=== PATIENT | male | born 1940 | race Caucasian/White ===

== ENCOUNTER 2025-01-02 09:30 | Inpatient (IN) | payer OTHER, SELFPAY ==
[2025-01-02] VITALS (34 sets, daily range): BP systolic 84–147; BP diastolic 45–111; BMI 29.2
--- NOTE | 2025-01-02 10:43 | CON.CAR ---
Addendum entered and electronically signed by Carmelo Pfeiffer MD 01/02/25 13:02:
I saw and examined the patient.
The FUR VAULT ATTENDANT's note was reviewed and I agree with the note.
Comment:
Mr. Shepherd is an 84 yo male with [place] [place] 23mm bio AVR in 02/2013, HFrEF 40%, HTN, CKD, and DM, who was admitted to [facility] 12/26/24 for syncope at home, cardiogenic shock and acute HFrEF (EF dropped from 40% to 25%), initially on dobutamine and levo,
then weaned to dobutamine 2.5. He was transferred to for cardiac cath and TAVR evaluation secondary to worsened aortic valve gradient with mean gradient 34mmHg. On exam he is comfortable appearing, irregularly irregular rhythm, systolic murmur,
no LE edema. Labs pending. Plan for LHC today. TAVR possible next week. Lasix depending on labs.
Original Note:
Consultation
Consultation Request
Date/Time Consultation Requested: 01/02/25 10:30a
Date/Time Consultation Performed: 01/02/25 10:30a
Requesting Provider: Dr. Salas
Performing Provider: ZAIRA Ge for Dr. Pfeiffer
Reason for Consultation: cardiogenic shock/aortic valve disease
Medical History
-
Chief Complaint: syncope/HFrEF
History of Present Illness:
Mr. Shepherd is an 84 yo male with [employer] [place] 23mm bio AVR in 02/2013, HFrEF 40%, HTN, CKD, and DM, who was admitted to [facility] 12/26/24 for syncope at home, cardiogenic shock and acute HFrEF. He was then transferred to for cardiac cath and TAVR
evaluation secondary to worsened aortic valve gradient mean gradient 34mmHg. There were insufficient records sent with him at the time of transfer and therefore additional records have been requested. Per physician/nurse report received, his EF is
now 20-25% with mean aortic valve gradient 34mmHg. He was in the ICU at [facility] on a Dobutamine drip, which is currently off. Currently he denies any cardiac complaints.
He states feeling lightheaded at home and had syncope and was taken to [facility]. He has diffuse ecchymosis to b/l arms/legs and left eye area. He states falling at home recently, uses a rolling walker at home. Denies any other cardiac symptoms at home.
He states imaging studies done at [facility] were negative.
Past Medical History
Past Medical History: Other (as above)
Past Surgical History: Cardiac (bio AVR 02/2013)
Social History
Tobacco: Non-Smoker
Alcohol: None
Personal:
Living: With Family
Employment: Retired
Family History
Family History: Reviewed & Not Pertinent
Allergies / Home Medications
Allergy/AdvReac Type Severity Reaction Status Date / Time
penicillin V [Penicillin V] Allergy Anaphylaxis Verified 02/12/13 18:16
�Medication �Instructions �Recorded �Confirmed �Type
aspirin 81 mg chewable tablet 81 mg PO DAILY 12/26/12 12/26/12 History
carvedilol 6.25 mg tablet 6.25 mg PO BID 12/26/12 12/26/12 History
furosemide 20 mg tablet 20 mg PO DAILY 12/26/12 12/26/12 History
losartan 50 mg tablet 50 mg PO DAILY 12/26/12 12/26/12 History
potassium chloride 10 mEq 10 meq PO DAILY 12/26/12 12/26/12 History
tablet,extended release (Klor-Con)
pravastatin 20 mg tablet 20 mg PO DAILY 12/26/12 12/26/12 History
(Pravachol)
silodosin 8 mg capsule (Rapaflo) 8 mg PO DAILY 12/26/12 12/26/12 History
Review of Systems
-
History Source: Patient
All other systems: Negative unless noted
Physical Exam
Vital Signs
Resp Pulse Ox
18 97
01/02/25 09:39 01/02/25 10:10
Lab Results
awaiting labs from his transfer records.
Physical Exam
General: Well Developed and Well Nourished
HEENT: Normocephalic and Moist Mucous Membranes
Respiratory: Clear and Non Labored Respirations
Cardiac: S1/S2, Regular Rhythm, Murmur and Peripheral Edema (trace b/l LE edema)
Breast: Deferred by me
GI: Soft, Non Tender and Normal Bowel Sounds
Rectal: Deferred by Provider
Genito-urinary: No Costovertebral Tender
Musculoskeletal: No Clubbing and No Cyanosis
Skin: Warm and Dry
Neuro: AO x 3
Psych: Calm
Impression / Plan
-
AVR - bio 02/[address] Solorzano at .
- now with mean gradient of aortic valve 34mmHg, awaiting records from [facility].
- plan for cath today and TAVR evaluation.
HFrEF - 20-25%, awaiting records from [facility].
- was diuresed at [facility] and on Dobutamine drip in the ICU.
- plan for LHC today and TAVR evaluation.
- monitor daily weights, I&Os, fluid/sodium restrictions.
- Lasix, Coreg and losartan held at [facility] due to hypotension requiring Dobutamine drip.
HTN - low BP with diuresis and cardiogenic shock while in ICU at [facility].
- was on Dobutamine, now off.
- monitor.
CKD - per transfer record notes, awaiting records.
- monitor.
Data Reviewed
-
Labs: Labs Reviewed by me
Old Records: Requested
--- NOTE | 2025-01-02 11:31 | PTCARENOTE ---
Pt received from [facility] via ambulance at 0940. Pt alert and oriented. Denies any pain or discomfort. Room air sat 97%. SR with first degree AV block, rate in the 70's to 90's.
--- NOTE | 2025-01-02 11:52 | HPS.HSE ---
Family Physician
-
Family Physician: Taj Singh
Chief Complaint
-
Cardiogenic shock
History of Present Illness
84 y/o M hx of DM, CKD, Hx of GI bleeding, valvular HD (hx of BioAVR), HTN, CAD presents as transfer from [facility]. Presented there 1 week ago with fall and hip pain (trauma workup negative). Also noted to be in acute CHF and CAN (on CKD) and Echo
revealed WMA, EF 20-25%, global hypokinesis. Concern was for cardiogenic shock - placed on Lasix and Dobutamine drips. Patient was transferred to for cath and TAVR eval. At present feels comfortable, no complaints. Per verbal report, admitting Cr
was 2.7 and most recently 2.1 (baseline 1.4) and Trop was 211 on their assay on admission.
Medical History
Past Medical History
Past Medical History: Reports Other (DM, CKD, Hx of GI bleeding, valvular HD (hx of BioAVR), HTN, CAD)
Past Surgical History: Reports Cardiac (hx of bioAVR)
Social History
Unable to obtain full social history at this time due to: Dementia
Tobacco: Non-smoker
Alcohol: None
Drug: None
Family History
Family History: Not pertinent
Allergies / Home Medications
Allergies reflects when Allergies were last updated in [employer].
Home Medications with original date entered in [employer]
Allergy/Medication List:
Allergies
Allergy/AdvReac Type Severity Reaction Status Date / Time
penicillin V [Penicillin V] Allergy Anaphylaxis Verified 02/12/13 18:16
Home Medications
aspirin 81 mg chewable tablet 81 mg PO DAILY 12/26/12
carvedilol 6.25 mg tablet 6.25 mg PO BID 12/26/12
furosemide 20 mg tablet 20 mg PO DAILY 12/26/12
losartan 50 mg tablet 50 mg PO DAILY 12/26/12
potassium chloride 10 mEq tablet,extended release (Klor-Con) 10 meq PO DAILY 12/26/12
pravastatin 20 mg tablet (Pravachol) 20 mg PO DAILY 12/26/12
silodosin 8 mg capsule (Rapaflo) 8 mg PO DAILY 12/26/12
Review of Systems
-
A 12 point ROS was completed and negative except as noted: Yes
Physical Exam
Vital Signs
Vital Signs
Temp Pulse Resp BP Pulse Ox
97.8 F 78 18 89/65 97
01/02/25 11:34 01/02/25 10:45 01/02/25 09:39 01/02/25 10:30 01/02/25 10:10
Physical Exam
General: Well Developed, Well Nourished and No Apparent Distress
HEENT: NormoCephalic and Anicteric
Respiratory: No Wheezes or Rales
Cardiac: S1/S2 and Regular Rhythm
GI: Soft and Non Tender
Neuro: AO x 3
Hematologic/Lymphatic: No Lymphadenopathy
Psych: Calm
Data Reviewed
-
Lab Data: Labs Reviewed by me
Impression/Plan
-
Assessment:
Cardiogenic shock
Hx of BioAVR
- IVU admission with stat labs, EKG
- Echo per verbal report with EF 20-25%, WMA, global hypokinesis, G3 Diastolic dysfunction
- transferred to on Dobutamine drip; currently on hold
- Lasix drip on hold
- for R and LHC today with Cardiology
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
Acute Cardiorenal syndrome
- obtain records formally but per verbal report admitting Cr was 2.7, 2.1 at time of transfer (baseline 1.4 from 07/2024)
- admission labs
- Nephrology consult
Hx of DM per record
- not on home meds
- check A1c
- SSI low scale
Hx of GI bleeding
- details unknown
Essential HTN
- Coreg/Lasix/ARB on hold
Hx of CAD
Urinary wall thickening on CT @ [facility]
- UA pending
DVT ppx: SCDs for now with cath pending
Code: Full
[2025-01-02 12:31] LABS: % Basophils 0.3 % (0-2); % Immature Granulocytes 0.3 % (0-0.5); % Lymphocytes 7.9 % (20.5-51.1); % Monocytes 10.4 % (1.7-9.3); % Neutrophils 80.1 % (42.2-75.2); Absolute Eosinophils 0.1 10^3/uL (0-0.7); Absolute Lymphocytes 0.5 10^3/uL (1.2-3.4); Absolute Monocytes 0.6 10^3/uL (0.1-0.6); Absolute Neutrophils 4.8 10^3/uL (1.4-6.5); Hematocrit 29.6 % (39.0-52.0); Hemoglobin 9.3 g/dL (13.0-18.0); Mean Corp Hgb Conc. 31.4 g/dL (33.0-37.0); Nucleated Red Blood Cells % 0 % (-); Red Blood Cell Count 3.44 10^6/uL (4.70-6.10); Red Cell Dist. Width 19.9 % (11.5-14.5); White Blood Cell Count 5.9 10^3/uL (4.8-10.8)
[2025-01-02 12:49] LABS: ALT (SGPT) 45 U/L (0-50); AST (SGOT) 84 U/L (17-59); Albumin 3.7 g/dl (3.5-5.0); Alkaline Phosphatase 75 U/L (38-126); Blood Urea Nitrogen 59 mg/dl (9-20); Calcium 8.9 mg/dl (8.4-10.2); Carbon Dioxide 28 mmol/L (22-30); Chloride 102 mmol/L (98-107); Glucose 122 mg/dl (70-99); Magnesium 2.8 mg/dl (1.6-2.3); Potassium 4.4 mmol/L (3.5-5.1); Sodium 140 mmol/L (135-145); Total Bilirubin 3.7 mg/dl (0.2-1.3); Total Protein 6.2 g/dl (6.3-8.2); eGFR 30.28
--- NOTE | 2025-01-02 13:08 | W.CON.NEPH ---
Consultation
-
Date/Time Consultation Requested: 01/02/2025 11:30 AM
Date/Time Consultation Performed: 01/02/2025 1:00
Requesting Provider: Dr. Harrison
Performing Provider: Dr. Koehler
Reason for Consultation: Acute kidney injury
Medical History
-
Chief Complaint: Acute kidney injury
History of Present Illness:
84 y/o M hx of DM, CKD, Hx of GI bleeding, valvular HD (hx of BioAVR), HTN, CAD presents as transfer from [facility]. He is a DM on metformin Presented there 1 week ago with fall and hip pain (trauma workup negative). Also noted to be in acute CHF and CAN
(on CKD) and Echo revealed WMA, EF 20-25%, global hypokinesis. Concern was for cardiogenic shock - placed on Lasix and Dobutamine drips. Patient was transferred to for cath and TAVR eval. At present feels comfortable, no complaints. Per verbal
report, admitting Cr was 2.7 and most recently 2.1 (baseline 1.4) and Trop was 211 on their assay on admission.
Past Medical History
DM, CKD (1.4), Hx of GI bleeding, valvular HD (hx of BioAVR), HTN, CAD,
Social History
Tobacco: Non-Smoker
Alcohol: None
Drug: None
Family History
No CKD
Allergies / Home Medications
Allergy/AdvReac Type Severity Reaction Status Date / Time
penicillin V [Penicillin V] Allergy Anaphylaxis Verified 02/12/13 18:16
�Medication �Instructions �Recorded �Confirmed �Type
aspirin 81 mg chewable tablet 81 mg PO DAILY 12/26/12 12/26/12 History
carvedilol 6.25 mg tablet 6.25 mg PO BID 12/26/12 12/26/12 History
furosemide 20 mg tablet 20 mg PO DAILY 12/26/12 12/26/12 History
losartan 50 mg tablet 50 mg PO DAILY 12/26/12 12/26/12 History
potassium chloride 10 mEq 10 meq PO DAILY 12/26/12 12/26/12 History
tablet,extended release (Klor-Con)
pravastatin 20 mg tablet 20 mg PO DAILY 12/26/12 12/26/12 History
(Pravachol)
silodosin 8 mg capsule (Rapaflo) 8 mg PO DAILY 12/26/12 12/26/12 History
Review of Systems
-
History Source: Patient
All other systems: Negative unless noted
Constitutional: Weight Gain, Fatigue and Other (weakness)
EENT: No Symptoms
Respiratory: Trouble Breathing
Cardiac: No Symptoms
Abdomen/GI: No Symptoms
: No Symptoms
Musculoskeletal: No Symptoms
Skin: No Symptoms
Neurological: Other (Dementia)
Endocrine: No Symptoms
Hematologic/Lymphatic: No Symptoms
Physical Exam
Vital Signs
Vital Signs
Temp Pulse Resp BP Pulse Ox
97.8 F 78 18 89/65 97
01/02/25 11:34 01/02/25 10:45 01/02/25 09:39 01/02/25 10:30 01/02/25 10:10
Lab Results
01/02/25 12:11
01/02/25 12:11
WBC 5.9 10^3/uL (4.8-10.8) 01/02/25 12:11
RBC 3.44 10^6/uL (4.70-6.10) L 01/02/25 12:11
Hgb 9.3 g/dL (13.0-18.0) L 01/02/25 12:11
Hct 29.6 % (39.0-52.0) L 01/02/25 12:11
Sodium 140 mmol/L (135-145) 01/02/25 12:11
Potassium 4.4 mmol/L (3.5-5.1) 01/02/25 12:11
Chloride 102 mmol/L (98-107) 01/02/25 12:11
Carbon Dioxide 28 mmol/L (22-30) 01/02/25 12:11
BUN 59 mg/dl (9-20) H 01/02/25 12:11
Creatinine 2.1 mg/dL (0.7-1.3) H 01/02/25 12:11
eGFR 30.28 01/02/25 12:11
Glucose 122 mg/dl (70-99) H 01/02/25 12:11
Calcium 8.9 mg/dl (8.4-10.2) 01/02/25 12:11
Albumin 3.7 g/dl (3.5-5.0) 01/02/25 12:11
Physical Exam
General: AOx3
HEENT: PERRL, EOMI, Conjunctivae Clear and Ear/Nose Intact
Respiratory: Wheezes and Other (decreased breath sounds at bases)
Cardiac: Regular Rate/Rhythm
Breast: Deferred by me
Abdomen: Soft, Nontender, Nondistended, Normal Bowel Sounds and No Hepatosplenomegaly
Rectal: Deferred by Provider
Genito-urinary: No Costovertebral Tender
Musculoskeletal: No Clubbing, No Cyanosis and No Edema
Skin: No Rash
Neuro: Nonfocal/Grossly Intact
Hematologic/Lymphatic: No Cervical Lymphadenopathy
Psych: Mood/afflect pleasant and Insight/judgement good
Data Reviewed
-
Medical Tests (Nuc Med, Echo etc): Other (EKG LAD 86bpm RBBB wide QRS)
Labs: Labs Reviewed by me (BMP CBC)
Old Records: Reviewed (Creatinine 1.09 July 2024)
Assessment/Plan
-
Impression:
CAN likely due to decompensated cardiorenal syndrome
Cardiomyopathy with EF of 20 to 25% with cardiogenic shock
CKD 3 (1.4)
Anemia
History of CAD
History of diabetes
Hypertension now hypotensive
Plan:
CAN:
-Likely due to cardiorenal syndrome in setting of decompensated cardiogenic shock
-For left and right heart cath today (will be at high risk for contrast nephropathy given acute kidney injury in setting of congestive heart failure)
-check PVR bladder scan
-Need to increase MAP to 65 or greater
-Holding antihypertensives
-Maintaining dobutamine inotropic support
-Check urinalysis urine sodium urine creatinine and kidney and bladder ultrasound
[2025-01-02 13:16] LABS: Platelet Count 78 10^3/uL (130-400)
--- NOTE | 2025-01-02 13:45 | CM ---
Addendum entered by MIGUELANGEL Nagel 01/02/25 14:33:
Met w/ patient again, spouse Miguelina (Ava) and 2 sons: Santiago and Dagoberto.
Family shared that patient has had numerous falls prior to his admission to [facility]. He has not done much therapy since being in [facility] (he was admitted x1 wk prior).
We discussed possibility of inpatient SNF upon DC from . Family open to this idea and feels that it would be helpful for patient.
They mentioned a SNF facility located on [facility] (?[facility]). Did not yet initiate a referral as there is not much to send at this time. Pt. would benefit from PT-OT evaluation once medically able to ascertain
needs.
We agreed to follow up early next week.
Antic. need for rehabilitation @ DC prior to returning home.
Original Note:
CM following for DC planning needs.
Met w/ patient at bedside to complete initial assessment.
Pt. with some confusion; will collaborate w/ family once they arrive.
Pt. resides w/ spouse in a private, split level home. He reports that his son, Dagoberto resides there as well. Pt. reports that he is indep. w/ use of a RW.
DC plan anticipates for return to home but will depend on medical/ functional progress.
CM will cont. to follow closely for DC planning needs.
[2025-01-02] MEDS: LOW STRENGTH ASPIRIN 81 MG PO (13:59)
[2025-01-02 14:09] LABS: Urine Albumin 1+ (Neg - Trace); Urine Bilirubin Negative (Negative); Urine Character Clear (Clear); Urine Color Yellow; Urine Glucose Negative (Negative); Urine Ketone Negative (Negative); Urine Leukocyte 1+ (Negative); Urine Nitrite Negative (Negative); Urine Occult Blood Negative (Negative); Urine Specific Gravity 1.015 (<1.030); Urine Urobilinogen Negative (Neg - 1+)
[2025-01-02 14:41] LABS: Urine Red Blood Cell 0-2 /HPF (0-2); Urine Squamous Cell 0-2 /LPF (Few)
[2025-01-02 14:42] LABS: Urine Bacteria Moderate (Negative); Urine Hyaline Cast >15 /LPF (0-2)
--- NOTE | 2025-01-02 17:30 | ITS.CL.PN ---
Bi Tester - Procedure Note
Procedure
Procedure Note:
CARDIAC CATHETERIZATION REPORT
Date of Procedure: 01/02/2025
Referring: Dr. Cherry Hernandez MD
Indication: Cardiogenic shock
PROCEDURE: right heart catheterization
ACCESS: 7F right internal jugular vein (sewn in place at 58 cm)
CATHETERS: 7F [place]Prashant
ULTRASOUND GUIDED VASCULAR ACCESS (right internal jugular vein): Ultrasound was utilized for vascular access. The vessel was visualized under ultrasound and noted to be patent. An image of the vessel was stored permanently in the patient's medical
record. Under direct ultrasound guidance, vascular access was obtained using a modified Seldinger technique and a 7 [place] sheath was placed.
HEMODYNAMIC DATA
AO 92/50 (mean 68) mmHg
RA 25 mmHg
RV 65/19 (EDP 24) mmHg
PA 66/33 (mean 49) mmHg
PCWP 32 mmHg
SaO2 96%
SvO2 31%
Hb 9.1 g/dL
CO/CI 3.28/1.56 L/min/m2
SVR 1048 dsc*-5
PVR 4.6 Wood units
RADIATION: dose 36 mGy; DAP 5.3 Gy*cm2; fluoroscopy time 2.6 min
CONCLUSIONS: severely elevated biventricular filling pressures, severe pre and postcapillary pulmonary hypertension, and severely reduced cardiac output and index with normal SVR
RECOMMENDATIONS
1. expectant management after cardiac catheterization via right internal jugular vein approach
2. swan guided management of cardiogenic shock. Initial plan to diurese aggressively with inotropic support.
3. once hemodynamics improve, consider left heart cath and coronary angiography to workup for possible valve in valve TAVR
Signed: Norm Ross MD, PhD
[2025-01-02 18:22] LABS: Glucose - Point of Care 123 mg/dl (70-99)
--- NOTE | 2025-01-02 18:29 | PTCARENOTE ---
Pt rec'd from garage laborer to room 15 in recovery. Pt dyspneic at rest with audible wheezing throughout. Pt with coarse breathsound and crackles b/l throughout. R IJ swan in place, transduced and Cortis with IV fluids infusing at KVO via pump. Pt's
pox 94% on RA. Pt due for IV lasix, however, pt's SBP 80's-90's at this time. Will hold. Accu ck completed. Pt with condom cath in place, draining charleen colored, clear urine. Report given to CVICU and pt transported.
[2025-01-02] MEDS: DOBUTREX 500 MG 250 IV (18:43)
[2025-01-02] MEDS: LASIX 80 MG IV (19:17)
--- NOTE | 2025-01-02 19:41 | PTCARENOTE ---
Received pt from phlebotomist medical lab assistant at 1820; pt AAOx2 and mildly agitated, bed alarm on; RIJ Cordis, Foreman and PIV x2; all lines leveled and zeroed; PAs 70s/30 and CVP 20s; Dobutamine started per MD order; updated Ying Pfeiffer BP 100s/60s, pt due for Lasix 80 IV
push and Lasix drip; confirmed with MD to give Lasix 80 IV push and watch BP if BP stable then ok to start drip; Santos catheter ordered by CVNP and placed; updated CVPA for possible A-line placement; report given to shift coordinator RN.
[2025-01-02 20:13] LABS: Glucose - Point of Care 124 mg/dl (70-99)
--- NOTE | 2025-01-02 21:10 | PTCARENOTE ---
Report received at bedside from ALVARO Kendall. Pt oriented to person, year. Intermittently to purpose and place. Able to recall birthday, president, family. Speech clear, moves all extremities equally x 4. Forgetful at times of parra catheter, nasal
cannula. Restless in bed at times. 2L/NC O2 placed. Sats 98-99%. BBS present. Some expiratory wheezing present to B anterior lobes. Decreased breath sounds at bases. Pt in SR with 1st degree AVB, c BBB. Frequent PVCs, occasional ventricular
bigeminy. One 18-beat run of tachycardia-AF vs wide complex tachycardia. Dobutamine gtt at 2.5 mcg/kg/min. CI done and is 1.98, SVR 1200's. Lasix 80 mg IV given slowly. BP maintained 84-108/60-70's. Discussed cardiac information via TT with
Kentrell. Plan is to start Lasix gtt as ordered after Arterial line placed by PA. To draw labs at 2200 (BMP and Mg). Belly soft, nontender. Passing flatus. Hypoactive bowel sounds x 4. Attempted BM x 1 on bedpan without success. Parra to drain,
clear, yellow urine. Hourly outputs monitored. Pt given CHG bath, linens changed. Ongoing plan of care.
[2025-01-02 22:29] LABS: Glucose - Point of Care 130 mg/dl (70-99)
[2025-01-02 23:17] LABS: Blood Urea Nitrogen 63 mg/dl (9-20); Calcium 8.7 mg/dl (8.4-10.2); Carbon Dioxide 27 mmol/L (22-30); Chloride 103 mmol/L (98-107); Estimated Creatinine Clearance 25 ml/min; Glucose 127 mg/dl (70-99); Magnesium 2.7 mg/dl (1.6-2.3); Potassium 4.5 mmol/L (3.5-5.1); Sodium 140 mmol/L (135-145); eGFR 28.63
--- NOTE | 2025-01-02 23:42 | W.PN.UPDATE ---
Update Note
Progress Note Update
Procedure Note:
Procedure: Left Radial Arterial Line Placement
Consent: Obtained and can be found in chart
Indication: Pt in cardiogenic shock, on Dobutamine in need of continuous BP monitoring and frequent phlebotomy
Method: After Dominick's test confirmed patency of left ulnar arty and kirk arches, area was sterilely prepped and draped. Lidocaine 1% was used to anesthetized area, left radial artery was identified and punctured
with an 18G radial arterial line needle, catheter was inserted using Seldinger's technique without resistance. Good flashback of blood was noted and catheter was connected to monitor with good waveform noted.
Catheter was sterilely adhered to wrist with tegaderm after applying biopatch. There were no significant blood loss, and pt tolerated procedure well.
[2025-01-03] VITALS (29 sets, daily range): BP systolic 77–141; BP diastolic 54–113; BMI 28.7
[2025-01-03] MEDS: LASIX 50 IV ×2 (00:07→21:15)
--- NOTE | 2025-01-03 00:15 | PTCARENOTE ---
Arterial line placed by Ed, PA. Pulsatile waveform to monitor. Line levelled and zeroed. Labs were drawn and sent at ~ 2200. PA with lab results. Lasix gtt started at ~ MN as ordered. Pt remains oriented to person, year, and intermittently to place
and purpose. Pt restless at times. Pulls at Santos, O2 cannula. Reoriented to purpose of medical devices/equipment in room.
[2025-01-03] MEDS: MELATONIN 5 MG PO (01:57)
--- NOTE | 2025-01-03 02:15 | PTCARENOTE ---
Melatonin 5 mg po given for insomnia. Pt restless at times. Pulling at A line, Santos at times. Sats on room air 93-95%. Most recent CI 2.02.
--- NOTE | 2025-01-03 06:15 | PTCARENOTE ---
Labs and urine drawn and sent. CXR done. LAC IV infiltrated. D/C'ed. New IV started in RAC #22. Lasix and NS carrier fluid infusing through new IV. Renal US to be done at bedside today. No change to neuro assessment. Remains restless at times. Picks
at Santos, arterial line, nasal cannula. To give report to ALVARO Campbell this am.
[2025-01-03 06:17] LABS: ALT (SGPT) 42 U/L (0-50); AST (SGOT) 68 U/L (17-59); Albumin 3.3 g/dl (3.5-5.0); Alkaline Phosphatase 76 U/L (38-126); Blood Urea Nitrogen 64 mg/dl (9-20); Calcium 8.5 mg/dl (8.4-10.2); Carbon Dioxide 24 mmol/L (22-30); Chloride 105 mmol/L (98-107); Direct Bilirubin 2.3 mg/dl (0.0-0.4); Estimated Creatinine Clearance 24 ml/min; GGTP 23 U/L (15-73); Glucose 121 mg/dl (70-99); Hematocrit 27.2 % (39.0-52.0); Hemoglobin 8.8 g/dL (13.0-18.0); Magnesium 2.5 mg/dl (1.6-2.3); Mean Corp Hgb Conc. 32.4 g/dL (33.0-37.0); Mean Corpuscular Hgb 27.1 pg (27.0-31.0); Mean Corpuscular Volume 83.7 fL (80.0-94.0); Platelet Count 65 10^3/uL (130-400); Potassium 4.4 mmol/L (3.5-5.1); Red Blood Cell Count 3.25 10^6/uL (4.70-6.10); Red Cell Dist. Width 19.9 % (11.5-14.5); Sodium 139 mmol/L (135-145); Total Bilirubin 4.1 mg/dl (0.2-1.3); Total Protein 5.8 g/dl (6.3-8.2); eGFR 27.15
[2025-01-03 06:30] LABS: Protein/creatinine Ratio 0.3; Urine Protein 15 mg/dl; Urine Sodium 73 mmol/L (30-90)
[2025-01-03 07:53] LABS: Glucose - Point of Care 127 mg/dl (70-99)
--- NOTE | 2025-01-03 08:05 | PTCARENOTE ---
Pt received from outgoing RN, pt on bedrest with Dung /america/sofya, on multiple gtts, dobutamine, lasix, vss, RA, bl SCD, parra, multiple bruising through the body d/t fall prior to admission. Pt disoriented to time and place, restless, constant
picking, require constant reorientation.
--- NOTE | 2025-01-03 08:38 | W.PN.NEPH.PH ---
Today's Communication / Plan
-
Maintain dobutamine and Lasix infusion
Follow BMP
Maintain Santos cath
Assessment/Plan
-
Impression:
CAN likely due to decompensated cardiorenal syndrome
Cardiomyopathy with EF of 20 to 25% with cardiogenic shock
CKD 3 (1.4)
Anemia
History of CAD
History of diabetes
Hypertension now hypotensive
Plan:
CAN:
-Creatinine at 2.3, nonoliguric with urine output of 1300 cc
-Chest x-ray personally reviewed from this morning notable for bilateral interstitial edema
-Likely due to cardiorenal syndrome in setting of decompensated cardiogenic shock
-check PVR bladder scan
-Need to increase MAP to 65 or greater
-Holding antihypertensives
-on dobutamine dobutamine and Lasix infusion as patient is volume overloaded in setting of cardiogenic shock
-Reviewed right cardiac catheterization report from yesterday 01/02/25: Pulmonary capillary wedge pressure 32 cardiac output 3.28 cardiac index 1.56 SVR 1048
-Check urinalysis urine sodium urine creatinine and kidney and bladder ultrasound: 300mg of proteinuria
-Patient at high clinical risk with persistent renal failure in setting of cardiogenic shock and decompensated congestive heart
-
-
Date of Service: January 03, 2025
CC / HPI / ROS
-
Chief Complaint:
Acute kidney injury
History of Present Illness:
Creatinine at 2.3
Hemodynamically labile
Remains on dobutamine infusion in setting of cardiogenic shock
Lasix infusion at 10 mg/h
Review of Systems:
Confused
Denies chest pain or shortness of
Santos catheter
Labs
-
Labs:
WBC 7.0 10^3/uL (4.8-10.8) 01/03/25 05:03
RBC 3.25 10^6/uL (4.70-6.10) L 01/03/25 05:03
Hgb 8.8 g/dL (13.0-18.0) L 01/03/25 05:03
Hct 27.2 % (39.0-52.0) L 01/03/25 05:03
Plt Count 65 10^3/uL (130-400) L 01/03/25 05:03
Sodium 139 mmol/L (135-145) 01/03/25 05:03
Potassium 4.4 mmol/L (3.5-5.1) 01/03/25 05:03
Chloride 105 mmol/L (98-107) 01/03/25 05:03
Carbon Dioxide 24 mmol/L (22-30) 01/03/25 05:03
BUN 64 mg/dl (9-20) H 01/03/25 05:03
Creatinine 2.3 mg/dL (0.7-1.3) H 01/03/25 05:03
eGFR 27.15 01/03/25 05:03
Glucose 121 mg/dl (70-99) H 01/03/25 05:03
Calcium 8.5 mg/dl (8.4-10.2) 01/03/25 05:03
Albumin 3.3 g/dl (3.5-5.0) L 01/03/25 05:03
Physical Exam
-
Vital Signs:
Vital Signs
Temp Pulse Resp BP Pulse Ox
99.1 F 88 24 93/64 96
01/03/25 07:58 01/03/25 07:45 01/03/25 07:45 01/03/25 00:00 01/03/25 08:03
Cardiovascular:: Regular rate and rhythm
Respiratory:: Bilateral: Coarse and Bilateral: Wheeze
Lung Excursion:: Normal
Abdomen:: Nontender and Soft
Bowel Sounds:: Normal
Extremity Edema:: None: Bilateral:
Santos Catheter: Yes
--- NOTE | 2025-01-03 09:25 | W.PN.CD ---
Today's Communication / Plan
-
Increase dobutamine to 5. Goal CI >2
Bolus with Lasix 80 mg and continue drip at 10. Goal CVP 10-12
Check 2 PM BMP/Mg for lytes
Echo on Sunday
Impression / Plan
-
84 yo male with [facility] [place] 23mm bio AVR in 02/2013, HFrEF 40%, HTN, CKD, and DM, who was admitted to [facility] 12/26/24 for syncope at home, cardiogenic shock and acute HFrEF (EF dropped from 40% to 25%) now transferred to for potential TAVR. RHC on
01/02/25 was cold and wet, started on dobutamine and lasix drip.
Cardiogenic shock
-Diagnosis is a threat to life and requires telemetry monitoring, frequent labs, and frequent nursing.
-RHC 01/02/2025: RA 25, PA 66/33 (48), PCWP 32, CO/CI 3.3/1.5, SVR 1048 at 92.3 kg
-Increase dobutamine to 5 mcg. Goal CI >2
-Continue Lasix drip at 10 mg. Bolus with 80 mg now and reassess CVP/PAd in 6 hours.
-Strict I's/O's, daily weights
-Check 2 PM BMP/Mg for lytes
CAN on CKD
-Likely cardiorenal
-Trend with inotrope assisted diuresis
-Renal following. Appreciate recs.
AVR - bio 02/[address] Solorzano at .
- now with mean gradient of aortic valve 34mmHg per report from [facility].
- repeat echo here on Sunday
- possible TAVR at some point this admission pending treatment of cardiogenic shock as above
HTN -currently on inotropes as above, hold home meds
CCT: 36 minutes, cardiogenic shock requiring inotropes.
Subjective: Patient has no complaints this AM. Underwent RHC yesterday (see results above). Most recent chemo was with CO/CI 3.9/1.85, SVR 1005, CVP 19, PAd 29. Telemetry with frequent PVCs but no ventricular runs.
Physical Exam
Vital Signs/Labs
Vital Signs
Temp Pulse Resp BP Pulse Ox
99.1 F 88 24 93/64 96
01/03/25 07:58 01/03/25 07:45 01/03/25 07:45 01/03/25 00:00 01/03/25 08:03
01/02/25 01/03/25 01/04/25
06:59 06:59 06:59
Actual Weight 90.6 kg
01/03/25 05:03
01/03/25 05:03
Magnesium 2.5 mg/dl (1.6-2.3) H 01/03/25 05:03
Physical Exam
Constitutional: No acute distress and Comfortable
Cardiovascular: Pedal edema is absent, Rhythm/rate is irregular, Systolic murmur present and S1S2 is normal
Respiratory: Respiratory effort normal and Crackles Present
Neuro/Psych: AO x 3
Other: Cath Site (looks OK, SGC clean and dry)
Data Reviewed
-
Date of Service: January 03, 2025
Medical Decision Making: Reviewed Test Results, Independent Historian Assessment, Test Interpretation and Review of Case with other Provider
EKG: Tracing Personally Visualized and interpreted
Echo: Report Reviewed by me
X-Ray/CT/US/MRI/NUC/PET: Image Personally Visualized and interpreted, Discussed with Physician and Discussed with Nurse
Labs: Labs Reviewed by me and Labs Ordered by me
Old Records: Reviewed
Critical Care Time (in minutes): 36
--- NOTE | 2025-01-03 09:28 | PTCARENOTE ---
INCREASED DOBUTAMINE 2.5MCG--> 5MCG PER , WILL GIVE AN ADDITIONAL DOSE OF 80MG OF LASIX
[2025-01-03] MEDS: PROTONIX 40 MG PO (09:33)
[2025-01-03] MEDS: LOW STRENGTH ASPIRIN PO (09:33)
[2025-01-03] MEDS: LASIX 80 MG IV ×2 (09:58→16:51)
[2025-01-03 10:42] LABS: Glycohemoglobin (HgbA1c) 5.7 % (4.0-5.6)
--- NOTE | 2025-01-03 10:56 | W.PN.HOSP.TC ---
Today's Communication/Plan
-
see outlined plan below
Assessment / Plan
Assessment / Plan
Assessment:
Cardiogenic shock
Hx of BioAVR
- Echo at [place] per verbal report with EF 20-25%, WMA, global hypokinesis, G3 Diastolic dysfunction. repeat Echo Sunday
- s/p RHC 01/02: RA 25, PA 66/33 (48), PCWP 32, CO/CI 3.3/1.5, SVR 1048 at 92.3 kg
- continue Dobutamine drip; continue invasive monitoring with [place]
- continue Lasix drip
- CBC cardiology following
- possible LHC and TAVR evaluation once shock more improved
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
Acute Cardiorenal syndrome
- admitting Cr at [place] was 2.7, 2.1 at time of transfer (baseline 1.4 from 07/2024) - await formal records
- Nephrology following
Hx of DM per record
- not on home meds
- A1c 5.7%
- SSI low scale
Hx of GI bleeding
- details unknown
Essential HTN
- Coreg/Lasix/ARB on hold
Hx of CAD
TME with confusion from UTI
Enterococcus UTI
- start IV Vancomycin pending cultures
Chronic anemia
Thrombocytopenia - presumed acute
- check anemia indices
- hematology consult
DVT ppx: SCDs with thrombocytopenia
Code: Full
Total Critical Care Time 42 minutes. I was immediately available to the patient and staff. I personally examined, reviewed labs, diagnostic images/reports, interpretations, treatment plans, discussed patient care with other providers and family
or caregivers (if patient is unable to make decisions), entered orders as appropriate and documented the medical record.
Anticipated Discharge: > 48 hours
Subjective/Interval History
-
Date of Service: January 03, 2025
s/p cath with cardiogenic shock - placed on Dobutamine/Lasix drips and [place] monitoring
no complaints at present
Objective Data
-
Labs:
Laboratory Results
01/02/25 01/03/25 01/03/25
22:21 05:03 14:00
WBC 7.0
Hgb 8.8 L
Hct 27.2 L
Plt Count 65 L
Sodium 140 139 Pending
Potassium 4.5 4.4 Pending
Chloride 103 105 Pending
Carbon Dioxide 27 24 Pending
BUN 63 H 64 H Pending
Creatinine 2.2 H 2.3 H Pending
Glucose 127 H 121 H Pending
Calcium 8.7 8.5 Pending
Total Bilirubin 4.1 H
AST 68 H
ALT 42
Alkaline Phosphatase 76
Vital Signs:
Vital Signs
Temp Pulse Resp BP Pulse Ox
99.1 F 101 20 93/64 93
01/03/25 07:58 01/03/25 09:30 01/03/25 09:30 01/03/25 00:00 01/03/25 09:00
I&O
01/02/25 01/03/25 01/04/25
06:59 06:59 06:59
Intake Total 279.8 / 279.8 210.6 / 210.6
Output Total 1160 / 1160 325 / 325
Balance -880.2 / -880.2 -114.4 / -114.4
Physical Exam
-
General: No Apparent Distress
HEENT: Normocephalic, Atraumatic and Other (IJ with [place])
Respiratory: Wheezes (faint) and Crackles
Cardiac: Irregular Rhythm (PVCs)
Genito-urinary: No Costovertebral Tender
Neuro: AO x 3
Hematologic / Lymphatic: No Lymphadenopathy
Psych: Calm and Confused
Data Reviewed
-
Critical Care Time (in minutes): 42
Labs: Labs Reviewed by me
--- NOTE | 2025-01-03 11:37 | PTCARENOTE ---
pt reassessment unchanged from previous, pt remains confused aaox1-2, cordis/swan/sofya, dobutamine & lasix gtt, fidel, ra, nsr, vss, repeat labs this afternoon.
[2025-01-03 11:44] LABS: Iron 43 ug/dl (49-181)
[2025-01-03 11:54] LABS: Percent Saturation 12 % (20-50); Total Iron Binding Capacity 332 ug/dl (261-462)
[2025-01-03 12:05] LABS: Glucose - Point of Care 149 mg/dl (70-99)
--- NOTE | 2025-01-03 12:09 | PHA.VAN.IN ---
Assessment
- Assessment
Renal Function: Appears elevated from baseline
Maximum Temperature: 99.1
Minimum Temperature: 97.1
Plan
- Plan
Initial / Loading Dose: Vanc 2000mg (22mg/kg)--administration pending
Maintenance Regimen: PRN by level
Monitoring: R 3/2 AM
Pharmacokinetics Vancomycin I
- -
Patient Age: 84
Patient Sex: Male
Vancomycin Day #: 1
Indication: Genito-Urinary Tract
Requesting Provider: Hunter
Pertinent Antimicrobial Allergies:
Penicillin = anaphylaxis
Height / Weight:
Height 5 ft 10 in
Actual Weight 90.6 kg
IBW in k
Adjusted BW in k
Pertinent Past Medical History: CAN on CKD 3b. Baseline SCr = 1.4
- Vital Signs / Lab Results
Temp Pulse Resp BP Pulse Ox
99.1 F 90 23 91/63 96
01/03/25 07:58 01/03/25 11:30 01/03/25 11:30 01/03/25 11:00 01/03/25 10:00
Lab Results - Hematology
01/02/25 01/03/25
12:11 05:03
WBC 5.9 7.0
Lab Results - Chemistry
01/02/25 01/02/25 01/03/25
12:11 22:21 05:03
BUN 59 H 63 H 64 H
Creatinine 2.1 H 2.2 H 2.3 H
Estimated Creat Clear 25 24
Albumin 3.7 3.3 L
Lab Results - Urine
01/02/25
13:45
Urine Nitrite (Reflex) Negative
Leukocyte Esterase Rfl 1+ A
Urine WBC (Reflex) 3-5
Ur Squamous Epith Cells 0-2
Urine Bacteria (Reflex) Moderate A
Microbiology Results
01/02/25 13:45 Urine Culture - Preliminary
Urine Enterococcus species
[2025-01-03] MEDS: VANCOCIN 540 MG IV (12:13)
[2025-01-03] MEDS: ATROVENT NEBULES 0.5 MG INH ×2 (12:19→16:56)
[2025-01-03 12:51] LABS: Ferritin 26.2 ng/ml (17.9-464.0)
[2025-01-03 13:22] LABS: Folate > 20.0 ng/ml (2.76-20); Vitamin B12 808 pg/ml (239-931)
[2025-01-03 14:03] LABS: Reticulocyte Count 2.7 % (0.4-2.8)
[2025-01-03 14:15] LABS: INR 1.91; PT 22.1 Sec (11.4-14.6)
[2025-01-03 14:16] LABS: APTT 37.1 Sec (23.4-35.0)
[2025-01-03 14:18] LABS: Blood Urea Nitrogen 66 mg/dl (9-20); Carbon Dioxide 26 mmol/L (22-30); Chloride 104 mmol/L (98-107); Estimated Creatinine Clearance 25 ml/min; Glucose 122 mg/dl (70-99); LDH 634 U/L (120-246); Magnesium 2.4 mg/dl (1.6-2.3); Potassium 4.1 mmol/L (3.5-5.1); Sodium 139 mmol/L (135-145); eGFR 28.63
[2025-01-03 14:20] LABS: Fibrinogen 147 MG/DL (199-459)
[2025-01-03 15:31] LABS: Mixed Venous O2 Saturation 33.1 %
--- NOTE | 2025-01-03 16:30 | PTCARENOTE ---
Pt confusion worsening, attempting to pull at lines (swan,cordis,sofya,parra), RN attempted to reorient the pt but pt is unable to comprehend and cooperate. RN reach out to regarding the worsening of mental status. Oral dose of risperdal
order but pt is unable to cooperate to take medication, 1mg IV haldol was then order for agitation. Pt was ordered nonviolent restraints for the pt safety to prevent from pulling necessary line. Rn will continue to reorient the pt and monitor pt
mental status.
left side bruising was noted and was marked, this was notified to as well. RN will continue to monitor for any additional changes.
--- NOTE | 2025-01-03 16:31 | W.PN.UPDATE ---
Update Note
Progress Note Update
Patient seen and examined at bedside this afternoon. He is confused but denies cardiovascular complaints. Repeat hemodynamics with CVP 20, PA 66/31 (44), CO/CI 5.1/2.4 by thermodilution. MvO2 33. CO/CI 3.5/1.7 by Evelyn equation. A-line BP 77/66
(MAP 70). Cuff BP 99/64 (MAP 75). Current drips: Dobutamine 5 mcg and Lasix 10 mg. Unfortunately there is discrepant data between cardiac output by thermodilution and Evelyn equation as well as BP by A line vs cuff. He is still making urine,
creatinine is stable to improving, and he is having short runs of NSVT, so I will leave dobutamine at 5 mcg. We will rebolus Lasix 80 mg. I called his family and spoke to his son Dagoberto to update him on his father's critical status. At this time
he would like him to remain full code because it is 'a lot to think about '. I expressed my concern that he will not make it to a valve replacement because his heart is too weak. Patient's son verbalized understanding. He, his mother (patient's
) and his other brother will be here tomorrow around 12:30 PM and we will reconvene.
[2025-01-03] MEDS: HALDOL 1 MG IV (17:07)
[2025-01-03] MEDS: TYLENOL 650 MG PO (18:18)
--- NOTE | 2025-01-03 18:22 | PTCARENOTE ---
Pt darshana dislodged, leaking at the site, Darshana removed.
[2025-01-03] MEDS: DOBUTREX 500 MG 250 IV (19:38)
--- NOTE | 2025-01-03 20:26 | CON.ONC ---
Impression
Impression
Cardiogenic shock
Enterococcal UTI
Change in mental status
Anemia
Thrombocytopenia
Plan
Plan
Suspect anemia is multifactorial including renal insufficiency, acute illness.
Iron deficiency noted with ferritin of 26.2 and iron sat of 12%. Heme check stools.
Last colonoscopy reportedly in 2016.
Ordered today to complete anemia workup: Reticulocyte, EPO, LDH, haptoglobin, SPEP.
Coags and fibrinogen now to evaluate thrombocytopenia.
B12 and folate are pending.
Thank you for consultation, will follow along with you.
Patient History
History of Present Illness
84 y/o M hx of DM, CKD, Hx of GI bleeding, valvular HD (hx of BioAVR), HTN, CAD presents as transfer from [facility]. Presented there 1 week ago with fall and hip pain (trauma workup negative). Also noted to be in acute CHF and CAN (on CKD) and Echo
revealed WMA, EF 20-25%, global hypokinesis. Concern was for cardiogenic shock - placed on Lasix and Dobutamine drips. Patient was transferred to for cath and TAVR eval. Hospitalization complicated by enterococcus UTI and change in mental status.
No historical labs in system since 2012. Pt unable to give history regarding his blood counts.
Past-Medical/Surgical History
Past Medical History
DM, CKD, Hx of GI bleeding, valvular HD, HTN, CA
Past Surgical History
hx of bioAVR
Social History
Unable to obtain full social history at this time due to: Dementia
Tobacco: Non-smoker
Alcohol: None
Drug: None
Family History
Unable to obtain due to dementia
Patient Medication
�Medication �Instructions �Recorded �Confirmed �Last Taken �Type
aspirin 81 mg chewable tablet 81 mg PO DAILY 12/26/12 01/02/25 02/10/13 08:00 History
81 mg
carvedilol 6.25 mg tablet 6.25 mg PO BID 12/26/12 01/02/25 02/10/13 08:00 History
6.25 mg
furosemide 20 mg tablet 20 mg PO DAILY 12/26/12 01/02/25 02/10/13 08:00 History
20 mg
potassium chloride 10 mEq 10 meq PO DAILY 12/26/12 01/02/25 02/10/13 14:00 History
tablet,extended release (Klor-Con) 10 mg
pravastatin 20 mg tablet 20 mg PO DAILY 12/26/12 01/02/25 02/09/13 20:00 History
(Pravachol) 20 mg
isosorbide mononitrate 30 mg 30 mg PO DAILY 01/02/25 01/02/25 Unknown History
tablet,extended release 24 hr
metformin 500 mg tablet 500 mg PO BID 01/02/25 01/02/25 Unknown History
pantoprazole 40 mg tablet,delayed 40 mg PO DAILY 01/02/25 01/02/25 Unknown History
release (Protonix)
sacubitril 49 mg-valsartan 51 mg 1 tab PO BID 01/02/25 01/02/25 Unknown History
tablet (Entresto)
Active Medications
Generic Name Dose Route Start Last Admin
Trade Name Freq PRN Reason Stop Dose Admin
Acetaminophen 650 mg 01/02/25 12:01 01/03/25 18:18
Acetaminophen 325 Mg Tablet PO 01/30/25 12:00 650 mg
Q4HPRN PRN Administration
mild pain/ROSE/temp> 100.4F
Aspirin 81 mg 01/02/25 14:00 01/03/25 09:33
Aspirin 81 Mg Chewable Tablet PO 01/30/25 13:59 Not Given
DAILY CLAYTON
Bisacodyl 10 mg 01/02/25 12:01
Bisacodyl 10 Mg Rectal Suppository RECTAL 01/30/25 12:00
[id number] PRN
constipation
Dextrose 12.5 grams 01/02/25 12:03
Dextrose 50% (0.5 Grams/Ml) 50 Ml Syringe IV 01/30/25 12:02
[id number] PRN
hypoglycemia
Protocol
Glucagon 1 mg 01/02/25 12:03
Glucagon 1 Mg Vial IM 01/30/25 12:02
PRN PRN
hypoglycemia
Protocol
Dobutamine HCl/Dextrose 500 mg in 250 mls @ 0 mls/hr 01/02/25 17:00 01/03/25 19:38
Dobutrex 500 Mg IV 250 mls
PER PROTOCOL CLAYTON Administration
Protocol
Per Protocol
Furosemide 500 mg in 50 mls @ 1 mls/hr 01/02/25 17:00 01/03/25 00:07
Lasix IV 50 mls
ORDERED RATE CLAYTON Administration
10 MG/HR
Vancomycin HCl 1 each/ Device 0 mls @ 0 mls/hr 01/03/25 11:10
IV
PER PROTOCOL CLAYTON
Protocol
As Directed
Insulin Aspart 0 units 01/02/25 16:30 01/03/25 17:37
Insulin Aspart Low Resistance 300 Units/3 Ml Pen.Injctr SC 01/30/25 16:29 Not Given
AC CLAYTON
Protocol
Ipratropium [place] 0.5 mg 01/03/25 11:06 01/03/25 16:56
Ipratropium Nebs 0.5 Mg/2.5 Ml Ampul INH 0.5 mg
R Q4HPRN PRN Administration
wheezing
Protocol
Ondansetron HCl 4 mg 01/02/25 12:01
Ondansetron 4 Mg/2 Ml Vial IV 01/30/25 12:00
Q6HPRN PRN
nausea and vomiting
Pantoprazole Sodium 40 mg 01/03/25 09:00 01/03/25 09:33
Pantoprazole 40 Mg Delayed Release Tablet PO 01/31/25 08:59 40 mg
DAILY CLAYTON Administration
Polyethylene Glycol 17 grams 01/02/25 12:01
Polyethylene Glycol Powder 17 Grams Packet PO 01/30/25 12:00
DAILYPRN PRN
constipation
Risperidone 0.5 mg 01/03/25 16:40
Risperidone 0.5 Mg Tablet PO 01/31/25 16:39
Q4HPRN PRN
agitation
Senna/Docusate Sodium 1 tablet 01/02/25 12:01
Docusate W/Senna (Janessa-Colace) Tablet PO 01/30/25 12:00
BIDPRN PRN
constipation
Sodium Chloride 0 flush 01/02/25 14:00
Sodium Chloride 0.9% (Flush) Syringe IV 01/30/25 13:59
PER PROTOCOL CLAYTON
Review of Systems
-
Unable to obtain full review of systems at this time due to: Dementia
Physical Exam
-
General: Well Developed, Well Nourished, No Apparent Distress and Other (Awake, alert, not oriented)
HEENT: Negative Jaundice or Moist Mucous Membranes
Cardiology: S1 and S2
Pulmonary: Other (decreased breath sounds)
GI: Soft; Negative Distended
Musculoskeletal: No Clubbing and No Cyanosis
Neurology: Non Focal
Skin: Warm and Dry
Hematologic / Lymphatic: No Lymphadenopathy
Psych: Calm and Confused
Labs
Lab Results
WBC 7.0 10^3/uL (4.8-10.8) 01/03/25 05:03
RBC 3.25 10^6/uL (4.70-6.10) L 01/03/25 05:03
Hgb 8.8 g/dL (13.0-18.0) L 01/03/25 05:03
Hct 27.2 % (39.0-52.0) L 01/03/25 05:03
MCV 83.7 fL (80.0-94.0) 01/03/25 05:03
MCH 27.1 pg (27.0-31.0) 01/03/25 05:03
MCHC 32.4 g/dL (33.0-37.0) L 01/03/25 05:03
RDW 19.9 % (11.5-14.5) H 01/03/25 05:03
Plt Count 65 10^3/uL (130-400) L 01/03/25 05:03
MPV 12.0 fL (7.4-10.4) H 01/03/25 05:03
Abs Immat Gran (auto) 0.0 10^3/uL (0-0.05) 01/02/25 12:11
Absolute Neuts (auto) 4.8 10^3/uL (1.4-6.5) 01/02/25 12:11
Absolute Lymphs (auto) 0.5 10^3/uL (1.2-3.4) L 01/02/25 12:11
Absolute Monos (auto) 0.6 10^3/uL (0.1-0.6) 01/02/25 12:11
Absolute Eos (auto) 0.1 10^3/uL (0-0.7) 01/02/25 12:11
Absolute Basos (auto) 0.0 10^3/uL (0-0.2) 01/02/25 12:11
Immature Gran % 0.3 % (0-0.5) 01/02/25 12:11
Neutrophils % 80.1 % (42.2-75.2) H 01/02/25 12:11
Lymphocytes % 7.9 % (20.5-51.1) L 01/02/25 12:11
Monocytes % 10.4 % (1.7-9.3) H 01/02/25 12:11
Eosinophils % 1.0 % (0-6) 01/02/25 12:11
Basophils % 0.3 % (0-2) 01/02/25 12:11
Creatinine 2.2 mg/dL (0.7-1.3) H 01/03/25 13:38
Vital Signs
Vital Signs
Temp Pulse Resp BP Pulse Ox
98.3 F 107 29 97/71 98
01/03/25 12:16 01/03/25 18:04 01/03/25 18:04 01/03/25 18:04 01/03/25 18:04
--- NOTE | 2025-01-03 20:45 | PTCARENOTE ---
Addendum entered by Jovan Etienne RN 01/04/25 03:11:
Shift Report received and day shift RN reported discovery of circular Left flank bruise, purple in color today. Reports telling Dr. Harrison about this bruising. Pt remains with bruises to B forearms, bruise to L eyelid. Pt denies pain.
Original Note:
Report received at bedside from Adrian JOHN. Pt receiving Renal US in bed. Pt with confusion and restlessness. Oriented to person only. Speech clear yet confused conversation. Follows simple commands with equal strength. (lead ramp service man equally to command,
wiggles toes BLE, moves legs with equal strength in bed) Restless, picking at gown, IV tubing, parra. Pt attempted to be reoriented. Ms Adam, FRAME CHANGER TT about pt confusion, restlessness. At bedside to see pt. Pt noted to have upper airway expiratory
wheezes at times. Xopenex ordered x 1 and given by RT. BBS present. Clear, Decreased to B bases. + CHIU. 2L/NC applied. Sats 94-96%. Pt in ST with BBB, PVCs at times. CI 1.9 on dobut 5 mcg, Lasix 10 mg/hr. Afebrile. Audible heart tones. For pulse and
wound assessments, see flowsheets. Belly soft, nontender, hypoactive bs x 4. Day shift RN reported a BM today. Pt passing flatus. UO marginal, concentrated yellow. Ongoing plan of care. FRAME CHANGER ordered Risperidone SL dose. Awaiting dose from Rx.
--- NOTE | 2025-01-03 21:15 | PTCARENOTE ---
Hemodynamics: CI, SVR, PA and CVP pressures, Sats, and marginal urine output, confusion & restlessness reported via TT to Dr. Pfeiffer. Dr. Pfeiffer reported calling pt family at home and pt now a DNR. BATSHEVA Yuan made aware of all hemodynamics,
UO, DNR status. DNR bracelet applied to pt.
--- NOTE | 2025-01-03 21:45 | PTCARENOTE ---
Calcium gluconate 2 gm IV given per order of PA. PA order given to hold Risperidone SL dose due to soft BP, Pt starting to sleep on his own. Pt remains confused, restless when awake. Ed, PA at bedside and Pt oriented to name, year, hospital (place).
Will encourage sleep, reorientation of reality to pt. Ongoing plan of care to monitor hemodynamics, urine output.
[2025-01-03] MEDS: XOPENEX 0.63 MG INHALANT SOLUTION INH (21:51)
[2025-01-03] MEDS: CALCIUM GLUCONATE 100 IV ×2 (21:51→23:57)
[2025-01-04] VITALS (75 sets, daily range): BP systolic 70–132; BP diastolic 45–117; BMI 29.0
--- NOTE | 2025-01-04 | PTCARENOTE ---
Repeat CI 1.99. 2nd dose Ca Gluconate 2 gm given IV per order of PA. O2 increased to 6L/NC while pt sleeping intermittently due to sats reading 88-89%. Sats on 6L are 96-97%. Pt remains confused, restless. Repositioned in bed multiple times. 4
siderails up. Mitts/ BUE limb restaints off due to pt becoming more agitated with restraints.
[2025-01-04 00:37] LABS: Glucose - Point of Care 125 mg/dl (70-99)
--- NOTE | 2025-01-04 03:45 | PTCARENOTE ---
Lab work drawn and sent. Pt sleeping for now.
[2025-01-04 04:33] LABS: Hematocrit 25.3 % (39.0-52.0); Hemoglobin 7.6 g/dL (13.0-18.0); Mean Corpuscular Hgb 26.6 pg (27.0-31.0); Mean Corpuscular Volume 88.5 fL (80.0-94.0); Mean Platelet Volume 11.8 fL (7.4-10.4); Platelet Count 63 10^3/uL (130-400); Red Blood Cell Count 2.86 10^6/uL (4.70-6.10); Red Cell Dist. Width 19.8 % (11.5-14.5); White Blood Cell Count 7.7 10^3/uL (4.8-10.8)
[2025-01-04 04:55] LABS: Blood Urea Nitrogen 74 mg/dl (9-20); Calcium 8.9 mg/dl (8.4-10.2); Carbon Dioxide 26 mmol/L (22-30); Chloride 102 mmol/L (98-107); Estimated Creatinine Clearance 21 ml/min; Glucose 134 mg/dl (70-99); Magnesium 2.4 mg/dl (1.6-2.3); Potassium 4.5 mmol/L (3.5-5.1); Sodium 140 mmol/L (135-145); eGFR 23.43
[2025-01-04 04:59] LABS: Vancomycin Random 15.1 ug/ml
[2025-01-04] MEDS: NEO-SYNEPHRINE 250 IV ×3 (05:17→21:27)
[2025-01-04] MEDS: RISPERDAL 0.5 MG PO (06:55)
--- NOTE | 2025-01-04 07:23 | PTCARENOTE ---
BP low. 70's systolic. PA made aware. Neosynephrine gtt ordered and started at 20 mcg/min. Titrated to 40 mcg/min to keep SBP > 90 mmHG. See VS flowsheet. Labs were drawn and sent PA with lab results. Report to ALVARO Dorantes this am. Pt more restless.
Mitts were applied due to pt pulling at nasal cannula, parra, [place] catheter. Remains confused. Oriented to person only. Risperidone 0.5 mg po given this am for restlessness/agitation. See MAR. Pt remains in SR-ST, occ PVCs. Sats on 6L/NC are 96-99%.
--- NOTE | 2025-01-04 08:30 | PTCARENOTE ---
Patient care assumed from nightshift RN. Patient is restless and agitated, PRN risperidol administered at 0655. Oriented to person and time, pt is unaware of place or current situation. Denies pain. Pt on phenylephrine gtt, dobutamine gtt, lasix
gtt. Systolic BP being maintained greater than 90mmHg per protocol. Santos catheter in place, pt having low urine output, strict I&O measured in chart. Pt sinus tachycardic 100-110 rate, bundle branch block and PVCs present. [place] Prashant measurements
being closely monitored. Pt on 6LNC with adequate O2 saturations. Pt had soft mitts on bilateral upper extremities for agitation, frequently monitoring cap refill and pulses. Pulses in upper and lower extremities palpable. Cordis RIJ in place and
patent.
--- NOTE | 2025-01-04 08:38 | W.PN.NEPH.PH ---
Today's Communication / Plan
-
Increase Lasix drip to 20 mg/h
500 mg IV Diuril
Assessment/Plan
-
Impression:
CAN likely due to decompensated cardiorenal syndrome
Cardiomyopathy with EF of 20 to 25% with cardiogenic shock
CKD 3 (1.4)
Anemia
History of CAD
History of diabetes
Hypertension now hypotensive
Plan:
CAN:
-Creatinine up to 2.6 patient urine output 1400 cc despite Lasix infusion
-Increase Lasix drip to 20 mg/h add 500 mg IV Diuril
-Chest x-ray personally reviewed from this morning notable for bilateral interstitial edema
-CAN due to cardiorenal syndrome in setting of decompensated cardiogenic shock
-parra
-Need to increase MAP to 65 or greater
-Holding antihypertensives
-on dobutamine dobutamine and Lasix infusion as patient is volume overloaded in setting of cardiogenic shock
-Reviewed right cardiac catheterization report from yesterday 01/02/25: Pulmonary capillary wedge pressure 32 cardiac output 3.28 cardiac index 1.56 SVR 1048
-Check urinalysis urine sodium urine creatinine and kidney and bladder ultrasound: 300mg of proteinuria
-Patient at high clinical risk with persistent renal failure in setting of cardiogenic shock and decompensated congestive heart
-
-
Date of Service: January 04, 2025
CC / HPI / ROS
-
Chief Complaint:
Acute kidney injury
History of Present Illness:
CAN worsening with creatinine up to 2.6
Hemodynamically labile
Remains on dobutamine infusion in setting of cardiogenic shock
Lasix infusion
Review of Systems:
Confused
Denies chest pain or shortness of
Parra catheter
Labs
-
Labs:
WBC 7.7 10^3/uL (4.8-10.8) 01/04/25 03:52
RBC 2.86 10^6/uL (4.70-6.10) L 01/04/25 03:52
Hgb 7.6 g/dL (13.0-18.0) L 01/04/25 03:52
Hct 25.3 % (39.0-52.0) L 01/04/25 03:52
Plt Count 63 10^3/uL (130-400) L 01/04/25 03:52
Sodium 140 mmol/L (135-145) 01/04/25 03:52
Potassium 4.5 mmol/L (3.5-5.1) 01/04/25 03:52
Chloride 102 mmol/L (98-107) 01/04/25 03:52
Carbon Dioxide 26 mmol/L (22-30) 01/04/25 03:52
BUN 74 mg/dl (9-20) H 01/04/25 03:52
Creatinine 2.6 mg/dL (0.7-1.3) H 01/04/25 03:52
eGFR 23.43 01/04/25 03:52
Glucose 134 mg/dl (70-99) H 01/04/25 03:52
Calcium 8.9 mg/dl (8.4-10.2) 01/04/25 03:52
Albumin 3.3 g/dl (3.5-5.0) L 01/03/25 05:03
Physical Exam
-
Vital Signs:
Vital Signs
Temp Pulse Resp BP Pulse Ox
98.5 F 93 12 88/49 94
01/04/25 08:00 01/04/25 08:17 01/04/25 08:17 01/04/25 08:17 01/04/25 08:24
Cardiovascular:: Regular rate and rhythm
Respiratory:: Bilateral: Coarse and Bilateral: Wheeze
Lung Excursion:: Normal
Abdomen:: Nontender and Soft
Bowel Sounds:: Normal
Extremity Edema:: None: Bilateral:
Parra Catheter: Yes
[2025-01-04 08:43] LABS: Glucose - Point of Care 137 mg/dl (70-99)
--- NOTE | 2025-01-04 09:08 | PHA.VAN.FU ---
Vancomycin Assessment / Plan
- Assessment
Renal Function: SCR Increasing
WBC's are: Trending Up
In the past 24 hrs, patient has been: Afebrile
- Assessment - Therapeutic Drug Monitoring
Random Level: R = 15.1 ~ 16hrs post Vanc 2000mg
- Dosing Plan
Continue: Dose by level
Dosing by Level: Hold off on dosing today
- Monitoring Plan
Random Level: 3/3 AM
- Follow Up
Pharmacy will continue to follow.
Vancomycin Follow UP
- -
Patient Age: 84
Patient Sex: Male
Vancomycin Day #: 2
Indication: Genito-Urinary Tract
Requesting Provider: Hunter
Pertinent Antimicrobial Allergies:
Penicillin = anaphylaxis
Height / Weight:
Height 5 ft 10 in
Actual Weight 91.8 kg
IBW in k
Adjusted BW in k
Pertinent Past Medical History: CAN on CKD 3b. Baseline SCr = 1.4
- Vital Signs / Lab Results
Temp Pulse Resp BP Pulse Ox
98.5 F 93 12 88/49 94
01/04/25 08:00 01/04/25 08:17 01/04/25 08:17 01/04/25 08:17 01/04/25 08:24
Lab Results - Hematology
01/02/25 01/03/25 01/04/25
12:11 05:03 03:52
WBC 5.9 7.0 7.7
Lab Results - Chemistry
01/02/25 01/02/25 01/03/25
12:11 22:21 05:03
BUN 59 H 63 H 64 H
Creatinine 2.1 H 2.2 H 2.3 H
Estimated Creat Clear
Albumin 3.7 3.3 L
01/03/25 01/04/25
13:38 03:52
BUN 66 H 74 H
Creatinine 2.2 H 2.6 H
Estimated Creat Clear
Albumin
Microbiology Results
01/02/25 13:45 Urine Culture - Preliminary
Urine Enterococcus species
Therapeutic Drug Monitoring
Random Vancomycin 15.1 ug/ml 01/04/25 03:52
[2025-01-04] MEDS: STERILE WATER FOR INJECTION 18 ML IV (09:33)
[2025-01-04] MEDS: DIURIL 0.5 GRAM VIAL 0.5 GRAMS IV (09:33)
[2025-01-04] MEDS: PROTONIX 40 MG PO (10:29)
[2025-01-04 11:26] LABS: Glucose - Point of Care 118 mg/dl (70-99)
--- NOTE | 2025-01-04 12:49 | PTCARENOTE ---
Patient mental status seems to be improving as the day progresses. Pt lasix gtt increased to 20mg/hr, urine output has increased as well, see I&O's for numerics. Santos catheter still in place. Rex gtt is being continuously titrated based on systolic
BP goal, fluctuating between 80 mcg/min and 100 mcg/min. Dobutamine gtt continued at 5 mcg/kg/min. HR in NSR with rate in 90s with PVCs. Patient is maintained in bilateral soft mitts but is much less agitated than earlier, will continue to assess
need for restraints, but still poses a risk to remove crucial hemodynamic catheters. [place] Prashant catheter still intact and pressures being closely monitored. Pt passing flatus, no BM yet. Pt still has poor appetite. RIJ cordis still intact and
infusing.
[2025-01-04] MEDS: LOW STRENGTH ASPIRIN 81 MG PO (13:07)
[2025-01-04] MEDS: DOBUTREX 500 MG 250 IV (13:07)
--- NOTE | 2025-01-04 13:18 | W.PN.HOSP.TC ---
Today's Communication/Plan
-
IV abx
Lasix drip, Dobutamine drip
Cards/Renal recs
Follow Hematology recs
Assessment / Plan
Assessment / Plan
Assessment:
Cardiogenic shock
Hx of BioAVR
- Echo at [place] per verbal report with EF 20-25%, WMA, global hypokinesis, G3 Diastolic dysfunction. repeat Echo Sunday
- s/p [facility] 01/02: RA 25, PA 66/33 (48), PCWP 32, CO/CI 3.3/1.5, SVR 1048 at 92.3 kg
- continue Dobutamine drip; continue invasive monitoring with Hensel
- continue Lasix drip. Diuril x 1 given 01/04/25
- CBC cardiology following
- possible LHC and TAVR evaluation once shock more improved
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
Acute Cardiorenal syndrome
- admitting Cr at [place] was 2.7, 2.1 at time of transfer (baseline 1.4 from 07/2024) - await formal records
- Nephrology following
Hx of DM per record
- not on home meds
- A1c 5.7%
- SSI low scale
Hx of GI bleeding
- details unknown
Essential HTN
- Coreg/Lasix/ARB on hold
Hx of CAD
TME with confusion from UTI
Enterococcus UTI
- continue IV Vancomycin, day 2
Chronic anemia
Thrombocytopenia - presumed acute
- follow anemia workup
- hematology following
DVT ppx: SCDs with thrombocytopenia
Code: Full
Total Critical Care Time 44 minutes. I was immediately available to the patient and staff. I personally examined, reviewed labs, diagnostic images/reports, interpretations, treatment plans, discussed patient care with other providers and family
or caregivers (if patient is unable to make decisions), entered orders as appropriate and documented the medical record.
Anticipated Discharge: > 48 hours
Subjective/Interval History
-
Date of Service: January 04, 2025
IV Lasix drip increased and Diuril given
less confused today
Objective Data
-
Labs:
Laboratory Results
01/04/25
03:52
WBC 7.7
Hgb 7.6 L
Hct 25.3 L
Plt Count 63 L
Sodium 140
Potassium 4.5
Chloride 102
Carbon Dioxide 26
BUN 74 H
Creatinine 2.6 H
Glucose 134 H
Calcium 8.9
Vital Signs:
Vital Signs
Temp Pulse Resp BP Pulse Ox
98.3 F 95 22 84/56 96
01/04/25 12:05 01/04/25 12:05 01/04/25 12:05 01/04/25 12:05 01/04/25 12:05
I&O
01/03/25 01/04/25 01/05/25
06:59 06:59 06:59
Intake Total 279.8 / 279.8 1866.6 / 1913.4 374.6 / 374.6
Output Total 1160 / 1160 1590 / 1620 387 / 387
Balance -880.2 / -880.2 276.6 / 293.4 -12.4 / -12.4
Physical Exam
-
General: No Apparent Distress
HEENT: Normocephalic and Atraumatic
Respiratory: Negative Wheezes
Cardiac: Regular Rhythm and S1/S2
GI: Soft, Nontender and Other (L flank bruise/hematoma from prior fall)
Neuro: AO x 3
Hematologic / Lymphatic: No Lymphadenopathy
Psych: Calm
Data Reviewed
-
Critical Care Time (in minutes): 44
Labs: Labs Reviewed by me
--- NOTE | 2025-01-04 14:07 | W.PN.CD ---
Today's Communication / Plan
-
Dobutamine at 5. Goal CI >2
Phenylephrine for goal systolic blood pressure greater than 100 mmHg
Continue Lasix at 20 mg/h. Goal CVP 10-12
Impression / Plan
-
84 yo male with [address] 23mm bio AVR in 02/2013, HFrEF 40%, HTN, CKD, and DM, who was admitted to [facility] 12/26/24 for syncope at home, cardiogenic shock and acute HFrEF (EF dropped from 40% to 25%) now transferred to for potential TAVR. [facility] on
01/02/25 was cold and wet, started on dobutamine and lasix drip. Then developed mixed cardiogenic/septic shock from possible UTI, started on phenylephrine 3/2 AM.
Last hemodynamics CO 4.5, CI 2.15, CVP 18, PA 55/27, BP 96/73 (82), HR 91, SVR 1097. Current infusions: Dobutamine 5, Rex 100, Lasix 20 status post IV Diuril 500 this a.m. Urine output 80-90 cc/h over last few hours.
Mixed cardiogenic/septic shock
-Diagnosis is a threat to life and requires telemetry monitoring, frequent labs, and frequent nursing care.
-[facility] 01/02/2025: RA 25, PA 66/33 (48), PCWP 32, CO/CI 3.3/1.5, SVR 1048 at 92.3 kg
-Continue dobutamine 5 mcg. Goal CI >2
-Continue phenylephrine (not an ideal pressor for cardiogenic shock but chosen due to tachycardia). Goal systolic BP >90 mmHg
-Continue Lasix drip at 20 mg. If UOP <40 cc/hr will rebolus 120mg Lasix
-Strict I's/O's, daily weights
-Check 8 PM BMP/Mg for lytes
CAN on CKD
-Likely cardiorenal
-Trend with inotrope assisted diuresis
-Renal following. Appreciate recs.
AVR - bio 02/[address] Solorzano at .
- now with mean gradient of aortic valve 34mmHg per report from [facility].
- repeat echo here on Sunday
- possible TAVR at some point this admission pending treatment of cardiogenic shock as above
HTN -currently on inotropes as above, hold home meds
GOD: Had an extensive discussion with the patient and his family about his critical illness. Expressed my concern that he will not be able to make it to a valve replacement given how sick his heart is. They verbalized understanding. He is DNR.
CCT: 47 minutes, cardiogenic shock requiring inotropes.
Subjective: Patient looking much better today. He is complaining of foot twitching but otherwise no CV complaints. He is eating lunch in bed with family ( and 2 sons) at bedside.
Physical Exam
Vital Signs/Labs
Vital Signs
Temp Pulse Resp BP Pulse Ox
98.3 F 95 22 84/56 96
01/04/25 12:05 01/04/25 12:05 01/04/25 12:05 01/04/25 12:05 01/04/25 12:05
01/03/25 01/04/25 01/05/25
06:59 06:59 06:59
Actual Weight 90.6 kg 91.8 kg
01/04/25 03:52
01/04/25 03:52
PT 22.1 Sec (11.4-14.6) H 01/03/25 13:38
INR 1.91 01/03/25 13:38
APTT 37.1 Sec (23.4-35.0) H 01/03/25 13:38
Magnesium 2.4 mg/dl (1.6-2.3) H 01/04/25 03:52
Magnesium Cancelled 01/04/25 03:52
Physical Exam
Constitutional: No acute distress and Comfortable
Cardiovascular: Rhythm & rate is regular, Pedal edema is absent, Systolic murmur present and S1S2 is normal
Respiratory: Respiratory effort normal and Crackles Present
Data Reviewed
-
Date of Service: January 04, 2025
Medical Decision Making: Reviewed Test Results, Independent Historian Assessment, Test Interpretation and Review of Case with other Provider
EKG: Tracing Personally Visualized and interpreted
Echo: Report Reviewed by me
X-Ray/CT/US/MRI/NUC/PET: Report Reviewed by me
Labs: Labs Reviewed by me and Labs Ordered by me
Old Records: Reviewed
--- NOTE | 2025-01-04 15:54 | W.PN.ANS.LIN ---
Anesthesia IV & A-Line Note
- IV/Arterial Line
Right Radial Arrow 20 (01/06)
IV Line Comments: Uneventful Procedure
A-Line Comments: Sterile technique as per standard protocol, Seldinger technique used, Ultrasound guided insertion, Biopatch applied
--- NOTE | 2025-01-04 16:35 | PTCARENOTE ---
Patient mental status continues to remain improved significantly since earlier this shift. Right Radial arterial line placed by anesthesia due to ongoing needs for vasopressors. Rex gtt increased to 160 mcg/min. Dobutamine remains at 5 mcg/kg/min.
Lasix also continued at 20mg/hr. See I&O for hour by hour urine output in parra catheter, still producing clear yellow urine around 75cc/hr. 6LNC with sufficient O2 sats. Some expiratory wheezes heard but no complaints of shortness of breath. HR
80-90s, NSR with PVCs. CI 2.10, CO 4.41, SVR 780, CVP 18, PAP 58/31. Denies pain. Closely monitoring patient.
[2025-01-04 17:04] LABS: Glucose - Point of Care 135 mg/dl (70-99)
[2025-01-04 17:04] LABS: Glucose - Point of Care 282 mg/dl (70-99)
--- NOTE | 2025-01-04 20:16 | PTCARENOTE ---
received pt from previous rn. pt oritented to self and place but unable to state the year. NSR w/ BBB per tele monitor. HR 80s - 90s. ABP 100/52 CVP 20 PAP 61/31. pox 100% on 6L NC lungs diminished, occasionalexpiratory wheeze, +bs, pt passing
flatus parra draining clear yellow urine, all lines zeroed and flushed, PETAR cross w/ Dung @ 58. PIV x1 intact, plan of care discussed call [facility] within reach
gtts:
Dobutamine
Rex
Lasix
[2025-01-04 20:18] LABS: Ionized Calcium 1.06 mMOL/L (1.15-1.33)
[2025-01-04 20:25] LABS: Hematocrit 24.8 % (39.0-52.0); Hemoglobin 7.8 g/dL (13.0-18.0); Mean Corp Hgb Conc. 31.5 g/dL (33.0-37.0); Mean Corpuscular Hgb 27.1 pg (27.0-31.0); Mean Corpuscular Volume 86.1 fL (80.0-94.0); Mean Platelet Volume 11.9 fL (7.4-10.4); Platelet Count 74 10^3/uL (130-400); Red Blood Cell Count 2.88 10^6/uL (4.70-6.10); Red Cell Dist. Width 19.7 % (11.5-14.5); White Blood Cell Count 8.7 10^3/uL (4.8-10.8)
[2025-01-04 20:35] LABS: Blood Urea Nitrogen 83 mg/dl (9-20); Calcium 8.5 mg/dl (8.4-10.2); Carbon Dioxide 25 mmol/L (22-30); Chloride 102 mmol/L (98-107); Estimated Creatinine Clearance 19 ml/min; Glucose 162 mg/dl (70-99); Magnesium 2.4 mg/dl (1.6-2.3); Potassium 4.2 mmol/L (3.5-5.1); Sodium 137 mmol/L (135-145); eGFR 19.74
[2025-01-04 21:25] LABS: Glucose - Point of Care 141 mg/dl (70-99)
[2025-01-04 21:28] LABS: Mixed Venous O2 Saturation 37.6 %
[2025-01-05] VITALS (44 sets, daily range): BP systolic 74–188; BP diastolic 20–151; BMI 29.7
[2025-01-05] MEDS: ANESTHETIC LOZENGE 1 LOZENGE PO (00:33)
[2025-01-05] MEDS: LASIX 50 IV ×2 (00:37→20:49)
--- NOTE | 2025-01-05 00:45 | PTCARENOTE ---
pt resting comfortably in bed, Pt mental status improving
gtts:
Rex: 200 mcg/min
Dobut: 5mcg/kg/hr
Lasix: 20mg/hr
[2025-01-05] MEDS: CALCIUM CHLORIDE 10% SYRINGE 60 MG IV ×2 (01:09→02:22)
[2025-01-05] MEDS: LEVOPHED 250 IV ×3 (01:51→21:50)
[2025-01-05] MEDS: CALCIUM GLUCONATE 100 IV (03:40)
[2025-01-05] MEDS: ZOFRAN 4 MG IV (04:07)
[2025-01-05 04:36] LABS: Ionized Calcium 1.34 mMOL/L (1.15-1.33)
[2025-01-05 04:38] LABS: Mixed Venous O2 Saturation 53.2 %
--- NOTE | 2025-01-05 04:43 | PTCARENOTE ---
routine labs obtained, NSR per tele monitor
gtts:
Levo 1 mcg/kg/min
Dobut 5
Lasix 20 mg
[2025-01-05 04:49] LABS: Hematocrit 27.7 % (39.0-52.0); Hemoglobin 8.7 g/dL (13.0-18.0); Mean Corp Hgb Conc. 31.4 g/dL (33.0-37.0); Mean Corpuscular Hgb 27.4 pg (27.0-31.0); Mean Corpuscular Volume 87.4 fL (80.0-94.0); Mean Platelet Volume 12.9 fL (7.4-10.4); Platelet Count 69 10^3/uL (130-400); Red Blood Cell Count 3.17 10^6/uL (4.70-6.10); Red Cell Dist. Width 19.8 % (11.5-14.5); White Blood Cell Count 7.8 10^3/uL (4.8-10.8)
[2025-01-05 04:51] LABS: INR 1.98; PT 22.6 Sec (11.4-14.6)
[2025-01-05 04:52] LABS: APTT 39.9 Sec (23.4-35.0)
[2025-01-05 05:12] LABS: ALT (SGPT) 49 U/L (0-50); AST (SGOT) 81 U/L (17-59); Albumin 3.4 g/dl (3.5-5.0); Alkaline Phosphatase 81 U/L (38-126); Blood Urea Nitrogen 80 mg/dl (9-20); Calcium 10.3 mg/dl (8.4-10.2); Carbon Dioxide 25 mmol/L (22-30); Chloride 101 mmol/L (98-107); Direct Bilirubin 2.8 mg/dl (0.0-0.4); Estimated Creatinine Clearance 18 ml/min; Glucose 126 mg/dl (70-99); Potassium 3.9 mmol/L (3.5-5.1); Sodium 137 mmol/L (135-145); Total Bilirubin 4.9 mg/dl (0.2-1.3); eGFR 18.97
[2025-01-05 05:13] LABS: Vancomycin Random 11.9 ug/ml
--- NOTE | 2025-01-05 05:17 | W.PN.UPDATE ---
Update Note
Progress Note Update
Cardiology Update Note:
-Pt did well overnight. Confusion has resolved. Mental status back to baseline, alert and oriented x 3
-On Vancomycin for Enterococcus faecalis UTI
-Was maxed out on Rex-Synephrine gtt @ 200 mcg/min last night with SBP 90's
-Received 1u PRBC for hgb 7.8, now 8.7; plts remains low @ 69K, hematology is following. INR is elevated @ 1.98
-Transitioned off Rex-Synephrine gtt to Levophed overnight, since no longer tachycardic in the 120's. Did have 19 beats of NSVT during transition
-Currently on Dobutamine gtt @ 5 mcg/kg/min and Levophed @ 2 mcg/min, and Lasix @ 20 mg/hr
-Last CI 1.81, MVO2 53.2%, 24 hr u/o 2220 mL. Cr is rising currently @ 3.1
-Current HR 90 nsr, BP 97/56, O2sats 98% on 6L NC
-Overall slow improvement
[2025-01-05] MEDS: KCL 20 MEQ PO (06:31)
[2025-01-05] MEDS: LOW STRENGTH ASPIRIN 81 MG PO (07:56)
[2025-01-05] MEDS: PROTONIX 40 MG PO (07:56)
[2025-01-05] MEDS: DOBUTREX 500 MG 250 IV (07:56)
--- NOTE | 2025-01-05 08:00 | PTCARENOTE ---
received pt from previous rn. walking rounds completed. resting in bed at time of assessment. pt appears AAOx2. asking for phone to call in breakfast for himself. NSR w/ BBB and 1AV block with frequent PVCs on monitor. HR 80-90s. CVP running 16-25.
PA pressures 60-70s/20-30s. pox 99% on 5L NC lungs diminished. +bs, poor appetite. parra draining clear yellow urine. Usual lines, zeroed and calibrated. PIV x1 intact. Dobutamine infusing at ordered rate as well as lasix and Levo @ 3mcg at change
of shift to keep sys 90 or greater. will continue to monitor.
--- NOTE | 2025-01-05 08:58 | W.PN.CD ---
Today's Communication / Plan
-
aggressive inotrope assisted diuresis, thiazide augmentation if needed
further workup for TAVR (cath, CTA) pending renal recovery and overall trajectory
Impression / Plan
-
84 yo male with [address] Catr[place] 23mm bio AVR in 02/2013, HFrEF 40%, HTN, CKD, and DM, who was admitted to [facility] 12/26/24 for syncope at home, cardiogenic shock and acute HFrEF (EF dropped from 40% to 25%) now transferred to for potential TAVR. [facility] on
01/02/25 was cold and wet, started on dobutamine and lasix drip. Then developed mixed cardiogenic/septic shock from possible UTI, started on phenylephrine 3/2 AM, now transitioned to norepi.
Subjective:
Today his is eating breakfast comfortably in bed, speaking in full sentences, in no acute distress.
Started on Vancomycin for Enterococcus faecalis UTI
Received 1u PRBC for hgb 7.8, now 8.7
Last hemodynamics CO 3.8, CI 1.8, CVP 22, PA 64/32, BP 97/53 (69), HR 78, SVR 1070. 100% on 6L O2. Current infusions: Dobutamine 5, Norepi 2, Lasix 20. UPO ~200 cc/hr this morning.
Mixed cardiogenic/septic shock
-Diagnosis is a threat to life and requires telemetry monitoring, frequent labs, and frequent nursing care.
-[facility] 01/02/2025: RA 25, PA 66/33 (48), PCWP 32, CO/CI 3.3/1.5, SVR 1048 at 92.3 kg - note PAD correlates to wedge pressure
-Continue dobutamine 5 mcg. Goal CI >2
-Continue norepi for goal MAP>65
-Continue Lasix drip at 20 mg. consider augmentation with diurel if UOP drops <100 / hr
-minimize obligate intake
-transition to low salt diet
-Strict I's/O's, daily weights
-Check q12 BMP/Mg for lytes
CAN on CKD
-Likely cardiorenal
-Trend with inotrope assisted diuresis
-Renal following. Appreciate recs.
-UPO improved this morning but overall has made little progresses with filling pressures and renal function despite aggressive diuresis. Will continue with another 24 hours of aggressive inotrope assisted diuresis but if no improvement will need to
discuss CRRT
AVR - bio 02/[address] Solorzano at .
- now with mean gradient of aortic valve 34mmHg per report from [facility].
- repeat echo here on Sunday
- possible TAVR at some point this admission pending treatment of cardiogenic shock as above
Enterococcus feacalis UTI
- started on vanc
Anemia, thrombocytopenia
- transfuse for goal Hb>80, Plt>50
HTN -currently on inotropes as above, hold home meds
GOD: extensive discussion over the weekend with patient and family about his critical illness. Expressed concern that he may not be able to make it to valve replacement. Was made DNR. Given that he is having NSVT in setting of inotrope and
aggressive diuresis, may be more reasonable to allow for shocks without prolonged coding.
CCT: 35 minutes, cardiogenic shock requiring inotropes.
Physical Exam
Vital Signs/Labs
Vital Signs
Temp Pulse Resp BP Pulse Ox
36.9 C 78 15 97/72 92
01/05/25 07:00 01/05/25 07:50 01/05/25 07:50 01/05/25 06:46 01/05/25 07:50
01/04/25 01/05/25 01/06/25
06:59 06:59 06:59
Actual Weight 91.8 kg 94 kg
01/05/25 04:27
01/05/25 04:27
PT 22.6 Sec (11.4-14.6) H 01/05/25 04:27
INR 1.98 01/05/25 04:27
APTT 39.9 Sec (23.4-35.0) H 01/05/25 04:27
Magnesium 2.4 mg/dl (1.6-2.3) H 01/04/25 20:08
Physical Exam
Constitutional: No acute distress
Cardiovascular: Rhythm & rate is regular
Respiratory: Respiratory effort normal
Neuro/Psych: AO x 3
extremities warm with minimal edema
Data Reviewed
-
Date of Service: January 05, 2025
Medical Decision Making: External Notes
EKG: Tracing Personally Visualized and interpreted
X-Ray/CT/US/MRI/NUC/PET: Image Personally Visualized and interpreted
Labs: Labs Reviewed by me
--- NOTE | 2025-01-05 09:29 | PHA.VAN.FU ---
Vancomycin Assessment / Plan
- Assessment
Renal Function: SCR Increasing
WBC's are: Trending Down
In the past 24 hrs, patient has been: Afebrile
- Assessment - Therapeutic Drug Monitoring
Random Level: R=11.9 on 3.3 @ 0427
- Dosing Plan
Dosing by Level: Re-dose today (1000 mg x1)
- Monitoring Plan
Random Level: 3/4 AM
- Follow Up
Pharmacy will continue to follow.
Vancomycin Follow UP
- -
Patient Age: 84
Patient Sex: Male
Vancomycin Day #: 3
Indication: Genito-Urinary Tract
Requesting Provider: Hunter
Pertinent Antimicrobial Allergies:
Penicillin = anaphylaxis
Height / Weight:
Height 5 ft 10 in
Actual Weight 94 kg
IBW in k
Adjusted BW in k
Pertinent Past Medical History: CAN on CKD 3b. Baseline SCr = 1.4
- Vital Signs / Lab Results
Temp Pulse Resp BP Pulse Ox
98 F 92 19 97/72 90
01/05/25 09:00 01/05/25 09:00 01/05/25 09:00 01/05/25 06:46 01/05/25 09:00
Lab Results - Hematology
01/02/25 01/03/25 01/04/25
12:11 05:03 03:52
WBC 5.9 7.0 7.7
01/04/25 01/05/25
20:08 04:27
WBC 8.7 7.8
Lab Results - Chemistry
01/02/25 01/02/25 01/03/25
12:11 22:21 05:03
BUN 59 H 63 H 64 H
Creatinine 2.1 H 2.2 H 2.3 H
Estimated Creat Clear
Albumin 3.7 3.3 L
01/03/25 01/04/25 01/04/25
13:38 03:52 20:08
BUN 66 H 74 H 83 H
Creatinine 2.2 H 2.6 H 3.0 H
Estimated Creat Clear 25 21 19
Albumin
01/05/25
04:27
BUN 80 H
Creatinine 3.1 H
Estimated Creat Clear 18
Albumin 3.4 L
Microbiology Results
01/02/25 13:45 Urine Culture - Final
Urine Enterococcus faecalis
Therapeutic Drug Monitoring
Random Vancomycin 11.9 ug/ml 01/05/25 04:27
[2025-01-05] MEDS: VANCOCIN 200 IV (10:29)
--- NOTE | 2025-01-05 11:03 | W.PN.NEPH.PH ---
Today's Communication / Plan
-
diurese
Assessment/Plan
-
Impression:
CAN due to decompensated cardiorenal syndrome
Cardiomyopathy with EF of 20 to 25% with cardiogenic shock
CKD 3 (1.4)
Anemia
History of CAD
History of diabetes
Hypotension
Bioprosthetic AVR
Plan:
Continue Lasix drip
Diuril 500 mg daily
Follow BMP
I had a long discussion with the patient as well as his family at bedside. We discussed that he is at very high likelihood of requiring dialysis which would likely be permanent.
This will be precipitated not only by continued cardiogenic shock but will be hastened by performing cardiac catheterization or CT with contrast IV. There is then risk for worsening kidney function with TAVR as well. If he was to make it to TAVR,
the question would be whether or not TAVR would improve his heart failure. We also discussed decreased quality of life on dialysis. There were 2 members of the family who had been on dialysis though have since. They were discussed
with family regarding overall goals. We did discuss hospice as well.
Critical care time spent 45 minutes
-
-
Date of Service: January 05, 2025
CC / HPI / ROS
-
Chief Complaint:
Acute kidney injury
History of Present Illness:
CAN worsening with creatinine up to 3.1
Hemodynamically labile, on levophed
Remains on dobutamine infusion in setting of cardiogenic shock
Lasix infusion with diuril with nonoliguria, but weights up
critically ill in CVICU
Review of Systems:
Confused
Denies chest pain or shortness of breath
Santos catheter
Labs
-
Labs:
WBC 7.8 10^3/uL (4.8-10.8) 01/05/25 04:27
RBC 3.17 10^6/uL (4.70-6.10) L 01/05/25 04:27
Hgb 8.7 g/dL (13.0-18.0) L 01/05/25 04:27
Hct 27.7 % (39.0-52.0) L 01/05/25 04:27
Plt Count 69 10^3/uL (130-400) L 01/05/25 04:27
Sodium 137 mmol/L (135-145) 01/05/25 04:27
Potassium 3.9 mmol/L (3.5-5.1) 01/05/25 04:27
Chloride 101 mmol/L (98-107) 01/05/25 04:27
Carbon Dioxide 25 mmol/L (22-30) 01/05/25 04:27
BUN 80 mg/dl (9-20) H 01/05/25 04:27
Creatinine 3.1 mg/dL (0.7-1.3) H 01/05/25 04:27
eGFR 18.97 01/05/25 04:27
Glucose 126 mg/dl (70-99) H 01/05/25 04:27
Calcium 10.3 mg/dl (8.4-10.2) H D 01/05/25 04:27
Albumin 3.4 g/dl (3.5-5.0) L 01/05/25 04:27
Physical Exam
-
Vital Signs:
Vital Signs
Temp Pulse Resp BP Pulse Ox
98.2 F 96 18 97/72 97
01/05/25 10:00 01/05/25 10:30 01/05/25 10:30 01/05/25 06:46 01/05/25 10:20
Cardiovascular:: Regular rate and rhythm
Respiratory:: Bilateral: Coarse
Lung Excursion:: Normal
Abdomen:: Nontender and Soft
Bowel Sounds:: Normal
Extremity Edema:: +2: Bilateral:
--- NOTE | 2025-01-05 11:39 | CM ---
Chart reviewed. Patient's son at bedside. Patient is independent of ADLS, lives with his and son in a split level house, ambulates with a RW. Patient will need a functional assessment once medically stable to determine discharge needs.
If patient will need SNF, family prefers [facility]. CM to follow
--- NOTE | 2025-01-05 12:00 | PTCARENOTE ---
levo now infusing at 8 mcg. frequent PVCs. BP not stable in this rhythm. increasingly confused throughout the day. states he wants to go to [facility]. saying goodbye to his son and me. aware.
--- NOTE | 2025-01-05 12:48 | W.PN.HOSP.TC ---
Today's Communication/Plan
-
continue Dobutamine and Lasix drips
continue IV Abx
follow Cards/Renal recs
Assessment / Plan
Assessment / Plan
Assessment:
Cardiogenic shock
Hx of BioAVR
- Echo at [place] per verbal report with EF 20-25%, WMA, global hypokinesis, G3 Diastolic dysfunction. repeat Echo Sunday
- s/p [facility] 01/02: RA 25, PA 66/33 (48), PCWP 32, CO/CI 3.3/1.5, SVR 1048 at 92.3 kg
- continue Dobutamine drip; continue invasive monitoring with [place]
- continue Lasix drip. s/p Diuril x 1 given 01/04/25
- CBC cardiology following
- possible LHC and TAVR evaluation once shock more improved
CNA on CKD stage 3b
Acute Cardiorenal syndrome
- admitting Cr at [place] was 2.7, 2.1 at time of transfer (baseline 1.4 from 07/2024) - await formal records
- Nephrology following
- patient likely will need [facility] if ongoing with TAVR and TAVR workup
Hx of DM per record
- not on home meds
- A1c 5.7%
- SSI low scale
Hx of GI bleeding
- details unknown
Essential HTN
- Coreg/Lasix/ARB on hold
Hx of CAD
TME with confusion from UTI
Enterococcus UTI
- continue IV Vancomycin, day 3
Chronic anemia
Thrombocytopenia - presumed acute
- follow anemia workup
- hematology following
- s/p 1 unit PRBC
DVT ppx: SCDs with thrombocytopenia
Code: Full
Total Critical Care Time 41 minutes. I was immediately available to the patient and staff. I personally examined, reviewed labs, diagnostic images/reports, interpretations, treatment plans, discussed patient care with other providers and family
or caregivers (if patient is unable to make decisions), entered orders as appropriate and documented the medical record.
Anticipated Discharge: > 48 hours
Subjective/Interval History
-
Date of Service: January 05, 2025
remains on Dobutamine and IV Lasix drip
confused
denies sob or cp
Objective Data
-
Labs:
Laboratory Results
01/05/25
04:27
WBC 7.8
Hgb 8.7 L
Hct 27.7 L
Plt Count 69 L
PT 22.6 H
INR 1.98
APTT 39.9 H
Sodium 137
Potassium 3.9
Chloride 101
Carbon Dioxide 25
BUN 80 H
Creatinine 3.1 H
Glucose 126 H
Calcium 10.3 H D
Total Bilirubin 4.9 H
AST 81 H
ALT 49
Alkaline Phosphatase 81
Vital Signs:
Vital Signs
Temp Pulse Resp BP Pulse Ox
98 F 91 20 97/72 89
01/05/25 11:00 01/05/25 11:20 01/05/25 11:20 01/05/25 06:46 01/05/25 11:20
I&O
01/04/25 01/05/25 01/06/25
06:59 06:59 06:59
Intake Total 1866.6 / 1913.4 2462.5 / 2505.8 94.1 / 94.1
Output Total 1590 / 1620 2412 / 2687 490 / 490
Balance 276.6 / 293.4 50.5 / -181.2 -395.9 / -395.9
Physical Exam
-
General: No Apparent Distress
HEENT: Normocephalic, Atraumatic and Other (R IJ [place])
Respiratory: Negative Wheezes
Cardiac: Regular Rhythm and S1/S2
GI: Soft
Genito-urinary: No Costovertebral Tender
Musculoskeletal: No Edema
Neuro: AO x 3
Psych: Calm
Data Reviewed
-
Critical Care Time (in minutes): 41
Labs: Labs Reviewed by me
[2025-01-05] MEDS: STERILE WATER FOR INJECTION 18 ML IV (13:08)
[2025-01-05] MEDS: DIURIL 0.5 GRAM VIAL 0.5 GRAMS IV (13:10)
--- NOTE | 2025-01-05 16:11 | PN.CDI ---
CDI
- -
CDI:
Physician Documentation Request
Admit Date: 01/02/25 09:30
Dear Doctor Hunter,
Patient admitted with cardiogenic shock from outside hospital.
01/03 -01/05 vital signs show patient on 4-6L
Please clarify which of the following accurately represents the patient's respiratory status:
Acute respiratory failure (please indicate type)
Hypoxia
Other
Additional information for Respiratory Failure:
Recognized criteria for Respiratory Failure (Source: [facility] Sep 2013)
ABGs: (1 or more) Symptoms Please indicate type if known
1. p)2 <60 or RA SPO2 <91% on RA 1. Tachypnea, SOB, dyspnea Hypoxic
2. pCO2 50 and pH <7.35 2. Use of accessory muscles Hypercapnic
3. pO2 decrease of pCO2 increase by 3. Pallor or cyanosis Hypoxic and Hypercapnic
10 mmHg from baseline if known 4. Anxiety or restlessness Unable to determine
5. Unable to speak in full sentences
Supplemental O2 of > 40% (5LPM) Intubation is not required
Use of terms such as suspected, likely, concern for, or probable (associated with a specific diagnosis that is being evaluated, monitored, or treated as if it exists) are acceptable and can be coded in the inpatient setting, when documented at the
time of discharge.
Thank you,
Mildred Chavarria RN BSN
CDI Specialist
tiger text
Please use your independent medical judgment in providing your response.
--- NOTE | 2025-01-05 16:15 | PN.CDI ---
CDI
- -
CDI:
Physician Documentation Request
Admit Date: 01/02/25 09:30
Dear Doctor Hunter,
The diagnosis of atrial fibrillation was included in the signed EKG 01/02
Please indicate in your progress notes if you are in agreement that the above diagnosis is valid for this patient:
____ - atrial fibrillation is a valid diagnosis (Please specify type)
____ - atrial fibrillation is not a valid diagnosis for this patient
____ - Other
Use of terms such as suspected, likely, concern for, or probable are acceptable for a diagnosis that is being evaluated, monitored or treated as if it exists and can be coded in the inpatient setting, when documented at the time of discharge.
Thank you,
Mildred Chavarria RN, BSN
CDI Specialist
tiger text
Please use your independent medical judgment in providing your response.
[2025-01-05 18:23] LABS: Glucose - Point of Care 174 mg/dl (70-99)
--- NOTE | 2025-01-05 19:23 | W.PN.ONC2 ---
Today's Communication / Plan
-
Monitor counts and coags.
Do not suspect primary hematologic process.
Transfuse PRN.
Impression
Impression
Cardiogenic shock
Enterococcal UTI
Change in mental status
Anemia
Thrombocytopenia
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
Plan
Plan
Suspect anemia is multifactorial including renal insufficiency, acute illness +/- low-grade valve hemolysis.
LDH elevated, awaiting haptoglobin, indirect bili 2.1
Low platelets, coagulopathy and low fibrinogen consistent with microangiopathy.
Iron deficiency noted with ferritin of 26.2 and iron sat of 12%. Heme check stools.
Last colonoscopy reportedly in 2015.
Subjective/Objective
Chief Complaint
Hematology follow up of cytopenias
Subjective
No complaints currently. Pt seen along with son at bedside.
Vital Signs:
Vital Signs
Temp Pulse Resp BP Pulse Ox
98.1 F 94 19 150/119 89
01/05/25 18:00 01/05/25 19:00 01/05/25 19:00 01/05/25 12:45 01/05/25 19:00
Lab Results:
Laboratory Data
WBC 7.8 10^3/uL (4.8-10.8) 01/05/25 04:27
Hgb 8.7 g/dL (13.0-18.0) L 01/05/25 04:27
Plt Count 69 10^3/uL (130-400) L 01/05/25 04:27
PT 22.6 Sec (11.4-14.6) H 01/05/25 04:27
INR 1.98 01/05/25 04:27
APTT 39.9 Sec (23.4-35.0) H 01/05/25 04:27
eGFR 18.97 01/05/25 04:27
PT 22.1, INR 1.91, PTT 37.1, fibrinogen 147, hemoglobin 8.7, MCV 87.4, platelets 69, reticulocyte 2.7%, haptoglobin pending, CR 3.1, calcium 10.3, ionized calcium 1.34, total bilirubin 4.9, direct bilirubin 2.8, indirect bilirubin 2.1, LDH 634, SPEP
pending, B12 808, folate greater than 20
Physical Exam
Awake, alert, non-toxic appearing
[2025-01-05 21:29] LABS: Blood Urea Nitrogen 84 mg/dl (9-20); Carbon Dioxide 25 mmol/L (22-30); Chloride 97 mmol/L (98-107); Estimated Creatinine Clearance 17 ml/min; Glucose 147 mg/dl (70-99); Magnesium 2.3 mg/dl (1.6-2.3); Sodium 133 mmol/L (135-145); eGFR 18.27
--- NOTE | 2025-01-05 21:30 | PTCARENOTE ---
Assumed care of pt from brittanie RN. Walking rounds completed. Upon entering the room, pt was found holding his arm where they had pulled out their peripheral IV. Pt gown/linens changed. Attempted to start a new IV x2 and was unsuccessful. IV team
called to initiate a new IV d/t incompatible medications. Pt oriented to person and time. Pt intermittently oriented to place. Pt w/ a combination oriented and confused conversation. Pt SR w/ PVCs, 1st degree block and BBB on monitor. HR 80-90s. BP
90s/50s. Levo infusing as ordered. CVP ~20. PAPs 60s/30s. CI 1.78. Trace edema throughout. Weak pulses throughout. Pt on 3 L NC. POX 92-100%. Lung sounds diminished B/L. Occasional cough. Deep breathing encouraged. Abdomen round. +BS. Santos catheter
intact and draining clear/yellow urine. Pt w/ significant bruising on left side/back. Pt also w/ bruising on B/L arms. Pt left toes w/ scabs and a dressing that is intact. Right radial a-line intact. Right IJ cordis w/ SWAN @48 intact. All lines
leveled, zeroed, and flushed. Dobutamine and Lasix infusing. Pt repositioned in bed. See worklist for full nursing assessment and interventions. Pt high fall risk - bed alarm on. Call hsu within reach.
[2025-01-05] MEDS: RISPERDAL 0.5 MG PO (22:38)
--- NOTE | 2025-01-05 23:00 | PTCARENOTE ---
Pt pulling at IV lines and increasingly restless. Pt then was verbally aggressive and tried to hit staff. PA aware. Mitts applied to pt and PRN risperidone administered - see JAN.
[2025-01-06 00:40] VITALS: BP 79/40
--- NOTE | 2025-01-06 00:50 | PTCARENOTE ---
Pt reassessed. Pt remains confused. Oriented to person but not time or place. Pt SR w/ increased ectopy on the monitor. PACs/PVCs. HR 80-90s. BP 90s/40s. CVP ~19. PAPs 60s/30s. CI 1.91. Levo, dobut, and lasix drips maintained. Right radial arterial
line and Right IJ cordis intact. All lines leveled, zeroed, and flushed. Pt remains on 3 L NC. POX 98%. Mitts remain on B/L hands. Pt repositioned. Santos catheter intact and draining yellow urine.
[2025-01-06] MEDS: ATIVAN 1 MG IV ×2 (01:18→16:12)
[2025-01-06] MEDS: NSS (PRESERVATIVE FREE) 0.5 ML IV (01:19)
[2025-01-06] MEDS: DOBUTREX 500 MG 250 IV (02:56)
[2025-01-06 03:00] VITALS: BP_SYST 100
[2025-01-06] MEDS: LEVOPHED 250 IV ×3 (03:48→14:36)
--- NOTE | 2025-01-06 04:16 | PTCARENOTE ---
Pt sleeping in bed at this time. Pt is Sinus tach w/ frequent PVC's/PACs on the tele monitor. HR 90-100s. BP 90s/40s. Levo infusing as ordered. CVP~14. PAP's 60s/30s. Pt on 5 L NC. POX 90-98%. Lasix and dobutamine infusing. Norphlet and a-line intact.
All lines leveled, zeroed, and flushed. Santos catheter intact and draining clear/yellow urine.
[2025-01-06] MEDS: LASIX 50 IV (04:43)
[2025-01-06 06:13] LABS: Mixed Venous O2 Saturation 38.7 %
[2025-01-06 06:14] LABS: Ionized Calcium 1.18 mMOL/L (1.15-1.33)
--- NOTE | 2025-01-06 06:21 | PTCARENOTE ---
Unable to get blood return when drawing a mixed venous from the yellow PA port on the swan. Flushes w/o issue. Mixed venous drawn from blue CVP port. PA aware of no blood return.
[2025-01-06 06:25] LABS: Hematocrit 27.7 % (39.0-52.0); Hemoglobin 8.6 g/dL (13.0-18.0); Mean Corpuscular Hgb 27.8 pg (27.0-31.0); Mean Corpuscular Volume 89.6 fL (80.0-94.0); Mean Platelet Volume 12.8 fL (7.4-10.4); Platelet Count 74 10^3/uL (130-400); Red Blood Cell Count 3.09 10^6/uL (4.70-6.10); Red Cell Dist. Width 19.5 % (11.5-14.5); White Blood Cell Count 8.6 10^3/uL (4.8-10.8)
[2025-01-06 06:27] LABS: APTT 41.9 Sec (23.4-35.0); INR 1.93; PT 22.2 Sec (11.4-14.6)
[2025-01-06 06:35] LABS: Vancomycin Random 15.7 ug/ml
[2025-01-06 06:36] LABS: Fibrinogen 80 MG/DL (199-459)
--- NOTE | 2025-01-06 06:36 | W.PN.UPDATE ---
Update Note
Progress Note Update
Cardiology Update Note:
-Pt confused, agitated and combative last night. Received Risperdal, and subsequently 1mg IV Ativan
-Pt slept following Ativan give ~ 0110 and remains asleep this AM
-Has mitts applied as he was attempting to remove parra and peripheral IVs
-Currently drips includes: Dobutamine @ 5 mcg/kg/min, Levophed @ 13 mcg/min, and Lasix gtt @ 20 mg/hr
-Last 24hr U/O 300 mL, AM creatinine is pending, was 3.2 last night. Nephrology is following
-H/H is stable @ 8.6/27.7, plts 74K up from 69K yesterday, INR 1.93. Hematology is following
[2025-01-06 06:40] VITALS: BMI 29.7
[2025-01-06 06:47] LABS: ALT (SGPT) 47 U/L (0-50); AST (SGOT) 66 U/L (17-59); Alkaline Phosphatase 74 U/L (38-126); Blood Urea Nitrogen 84 mg/dl (9-20); Calcium 8.4 mg/dl (8.4-10.2); Carbon Dioxide 28 mmol/L (22-30); Chloride 98 mmol/L (98-107); Direct Bilirubin 2.9 mg/dl (0.0-0.4); Estimated Creatinine Clearance 17 ml/min; Glucose 141 mg/dl (70-99); Potassium 3.7 mmol/L (3.5-5.1); Sodium 135 mmol/L (135-145); Total Bilirubin 4.4 mg/dl (0.2-1.3); Total Protein 5.5 g/dl (6.3-8.2); eGFR 18.27
[2025-01-06] MEDS: CALCIUM GLUCONATE 100 IV (07:14)
--- NOTE | 2025-01-06 07:15 | W.PN.HOSP.TC ---
Today's Communication/Plan
-
continue current plan of care
offered family option of comfort measures since patient expressed no desire for dialysis yesterday; family will convene today for further goals of care
Assessment / Plan
Assessment / Plan
Assessment:
Cardiogenic shock
Hx of BioAVR
- Echo at [facility] per verbal report with EF 20-25%, WMA, global hypokinesis, G3 Diastolic dysfunction. repeat Echo Sunday
- s/p RHC 01/02: RA 25, PA 66/33 (48), PCWP 32, CO/CI 3.3/1.5, SVR 1048 at 92.3 kg
- continue Dobutamine drip; continue invasive monitoring with [place]
- continue Lasix drip. s/p Diuril x 1 given 01/04/25
- CBC cardiology following
- possible LHC and TAVR evaluation once shock more improved
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
Acute Cardiorenal syndrome
- admitting Cr at [facility] was 2.7, 2.1 at time of transfer (baseline 1.4 from 07/2024) - await formal records
- Nephrology following
- patient likely will need skilled nursing HD if ongoing with TAVR and TAVR workup; patient seemingly mentioned to RN/family that he would not want to pursue HD
Acute hypoxic respiratory failure due to volume overload
- wean O2 as able
Hx of DM per record
- not on home meds
- A1c 5.7%
- SSI low scale
new Parox A. Fib
- was transient now back to NSR
Hx of GI bleeding
- details unknown
Essential HTN
- Coreg/Lasix/ARB on hold
Hx of CAD
TME with confusion from UTI
Enterococcus UTI
- continue IV Vancomycin, day 4
Chronic anemia
Thrombocytopenia - presumed acute
- follow anemia workup
- hematology following
- s/p 1 unit PRBC
DVT ppx: SCDs with thrombocytopenia
Code: Full
Total Critical Care Time 42 minutes. I was immediately available to the patient and staff. I personally examined, reviewed labs, diagnostic images/reports, interpretations, treatment plans, discussed patient care with other providers and family
or caregivers (if patient is unable to make decisions), entered orders as appropriate and documented the medical record.
Anticipated Discharge: > 48 hours
Subjective/Interval History
-
Date of Service: January 06, 2025
confused overnight received Risperdal and Ativan
more SOB today
Levophed requirements increasing per RN
Objective Data
-
Labs:
Laboratory Results
01/05/25 01/06/25
21:01 06:05
WBC 8.6
Hgb 8.6 L
Hct 27.7 L
Plt Count 74 L
PT 22.2 H
INR 1.93
APTT 41.9 H
Sodium 133 L 135
Potassium 4.0 3.7
Chloride 97 L 98
Carbon Dioxide 25 28
BUN 84 H 84 H
Creatinine 3.2 H 3.2 H
Glucose 147 H 141 H
Calcium 9.0 8.4
Total Bilirubin 4.4 H
AST 66 H
ALT 47
Alkaline Phosphatase 74
Vital Signs:
Vital Signs
Temp Pulse Resp BP Pulse Ox
97.5 F 97 16 79/40 95
01/06/25 06:00 01/06/25 06:15 01/06/25 06:15 01/06/25 00:40 01/06/25 06:00
I&O
01/05/25 01/06/25 01/07/25
06:59 06:59 06:59
Intake Total 2462.5 / 2505.8 1394.5 / 1394.5
Output Total 2412 / 2687 3000 / 3000
Balance 50.5 / -181.2 -1605.5 / -1605.5
Physical Exam
-
General: Respiratory Distress
HEENT: Normocephalic and Atraumatic
Respiratory: Crackles
Cardiac: Regular Rhythm and S1/S2
GI: Soft
Neuro: Awake
Psych: Confused
Data Reviewed
-
Critical Care Time (in minutes): 42
Labs: Labs Reviewed by me
--- NOTE | 2025-01-06 08:00 | PTCARENOTE ---
received patient from previous RN. patient asleep post ativan dose given last night. Not able to wake. All MDs part of his care made aware. Remains in SR. HR 90s-100. 13 mcg levo and 5 mcg dobut infusing as well as lasix gtt. BP dips under 90 sys
with frequent pvcs. 4L nc for comfort. pulses palpable. awaiting family to come in for conversation about directing type of care.
[2025-01-06 08:13] VITALS: BP 83/58
[2025-01-06] MEDS: LOW STRENGTH ASPIRIN 81 MG PO (08:42)
[2025-01-06] MEDS: PROTONIX 40 MG PO (08:42)
[2025-01-06] MEDS: STERILE WATER FOR INJECTION 18 ML IV (08:43)
[2025-01-06] MEDS: KCL 40 MEQ PO (08:50)
--- NOTE | 2025-01-06 09:32 | PHA.VAN.FU ---
Vancomycin Assessment / Plan
- Assessment
Renal Function: Stable
WBC's are: WNL
In the past 24 hrs, patient has been: Afebrile
- Assessment - Therapeutic Drug Monitoring
Random Level: 15.7 - drawn ~19.5H after previous dose of 1000mg
Between prior levels of 15.1 to 11.9 (drawn without a dose in between), half-life was ~71.5H
- Dosing Plan
Dosing by Level: Hold off on dosing today (based on half-life calculation from prior levels)
- Monitoring Plan
Random Level: 01/07 06
- Follow Up
Pharmacy will continue to follow.
Vancomycin Follow UP
- -
Patient Age: 84
Patient Sex: Male
Vancomycin Day #: 4
Indication: Genito-Urinary Tract
Requesting Provider: Hunter
Pertinent Antimicrobial Allergies:
Ampicillin/sulbactam - serum sickness, unable to move like he was paralyzed
Height / Weight:
Height 5 ft 10 in
Actual Weight 94 kg
Pertinent Past Medical History: CKD (baseline ~1.4), DM, BMI ~30
- Vital Signs / Lab Results
Temp Pulse Resp BP Pulse Ox
97.2 F 95 14 79/40 96
01/06/25 08:00 01/06/25 08:00 01/06/25 08:00 01/06/25 00:40 01/06/25 08:00
Lab Results - Hematology
01/04/25 01/04/25 01/05/25
03:52 20:08 04:27
WBC 7.7 8.7 7.8
01/06/25
06:05
WBC 8.6
Lab Results - Chemistry
01/03/25 01/04/25 01/04/25
13:38 03:52 20:08
BUN 66 H 74 H 83 H
Creatinine 2.2 H 2.6 H 3.0 H
Estimated Creat Clear 25 21 19
Albumin
01/05/25 01/05/25 01/06/25
04:27 21:01 06:05
BUN 80 H 84 H 84 H
Creatinine 3.1 H 3.2 H 3.2 H
Estimated Creat Clear 18 17 17
Albumin 3.4 L 3.0 L
Microbiology Results
01/02/25 13:45 Urine Culture - Final
Urine Enterococcus faecalis
Therapeutic Drug Monitoring
Random Vancomycin 15.7 ug/ml 01/06/25 06:05
--- NOTE | 2025-01-06 09:55 | W.PN.ONC2 ---
Documented by User: ZAIRA Frausto 01/07/25 09:17
Today's Communication / Plan
-
.
Impression
Impression
Cardiogenic shock - Hx of BioAVR
Enterococcal UTI
Change in mental status
Anemia -Hgb stable 8.6g/dL s/p 1U prbc 3/2 for Hgb 7.6g/dL
Thrombocytopenia - platelet stable 74,000
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
DIC
CAN
new PAF
Plan
Plan
Suspect anemia is multifactorial including renal insufficiency, acute illness +/- low-grade valve hemolysis.
LDH elevated, awaiting haptoglobin, indirect bili 2.1
FFP prn bleeding if INR >1.5, cryo prn bleeding for fibrinogen <150. consider vitamin K for INR >1.5
Iron deficiency noted with ferritin of 26.2 and iron sat of 12%. Heme check stools.
Last colonoscopy reportedly in 2015.
Subjective/Objective
Subjective
hypotensive on pressors
Vital Signs:
Vital Signs
Temp Pulse Resp BP Pulse Ox
97 F 91 14 83/58 97
01/06/25 09:00 01/06/25 09:45 01/06/25 09:45 01/06/25 08:13 01/06/25 09:45
Lab Results:
Laboratory Data
WBC 8.6 10^3/uL (4.8-10.8) 01/06/25 06:05
Hgb 8.6 g/dL (13.0-18.0) L 01/06/25 06:05
Plt Count 74 10^3/uL (130-400) L 01/06/25 06:05
PT 22.2 Sec (11.4-14.6) H 01/06/25 06:05
INR 1.93 01/06/25 06:05
APTT 41.9 Sec (23.4-35.0) H 01/06/25 06:05
eGFR 18.27 01/06/25 06:05
Orders
Orders
Orders From Last 24 Hours
01/06/25 06:05
Fibrinogen IN AM
PT/INR [Prothrombin Time] IN AM
PTT IN AM

Documented by User: Pranav Orellana, DO 01/06/25 12:21
Today's Communication / Plan
-
family at bedside waiting for other members to withdraw care.
Plan
Plan
Suspect anemia is multifactorial including renal insufficiency, acute illness +/- low-grade valve hemolysis.
LDH elevated, awaiting haptoglobin, indirect bili 2.1
FFP prn bleeding if INR >1.5, cryo prn bleeding for fibrinogen <150. consider vitamin K for INR >1.5
Iron deficiency noted with ferritin of 26.2 and iron sat of 12%. Heme check stools.
Last colonoscopy reportedly in 2015.
COMFORT CARE current plan
Subjective/Objective
Chief Complaint
non-conversant
Physical Exam
HEENT: Moist Mucous Membranes
Cardiology: Normal Sinus Rhythm
Pulmonary: Rhonchi
GI: Soft
Rectal: Brown
Neuro: Non Focal
Review of Systems
Review of Systems
nonconversant
[2025-01-06] MEDS: DIURIL 0.5 GRAM VIAL 0.5 GRAMS IV (10:08)
--- NOTE | 2025-01-06 10:30 | CM ---
Chart reviewed. Patient is independent of ADLS, lives with his and son in a split level house. Family to meet today to decide plan of care, possible Hospice/Comfort Care. CM to follow
--- NOTE | 2025-01-06 11:29 | W.PN.NEPH.PH ---
Today's Communication / Plan
-
cont supportive care till family comes
Assessment/Plan
-
Impression:
CAN due to decompensated cardiorenal syndrome
Cardiomyopathy with EF of 20 to 25% with cardiogenic shock
CKD 3 (1.4)
Anemia
History of CAD
History of diabetes
Hypotension
Bioprosthetic AVR
Plan:
Continue Lasix drip
Diuril 500 mg daily
cr remains high at 3.2
Follow BMP
reviewed with family and likely moving towards comfort care once all the family reaches
Dr Stapleton on 01/05 had a long discussion with the patient as well as his family at bedside. We discussed that he is at very high likelihood of requiring dialysis which would likely be permanent.
This will be precipitated not only by continued cardiogenic shock but will be hastened by performing cardiac catheterization or CT with contrast IV. There is then risk for worsening kidney function with TAVR as well. If he was to make it to TAVR,
the question would be whether or not TAVR would improve his heart failure. We also discussed decreased quality of life on dialysis. There were 2 members of the family who had been on dialysis though have since. They were discussed
with family regarding overall goals. We did discuss hospice as well.
-
-
Date of Service: January 06, 2025
CC / HPI / ROS
-
Chief Complaint:
Acute kidney injury
History of Present Illness:
CAN worsening with creatinine up to 3.2
Hemodynamically labile, on levophed
Remains on dobutamine infusion in setting of cardiogenic shock
Lasix infusion with diuril with nonoliguric, but weights no change
critically ill in CVICU
Review of Systems:
sedated, got Ativan last night for aggressive behavior
Santos catheter
no fever
Labs
-
Labs:
WBC 8.6 10^3/uL (4.8-10.8) 01/06/25 06:05
RBC 3.09 10^6/uL (4.70-6.10) L 01/06/25 06:05
Hgb 8.6 g/dL (13.0-18.0) L 01/06/25 06:05
Hct 27.7 % (39.0-52.0) L 01/06/25 06:05
Plt Count 74 10^3/uL (130-400) L 01/06/25 06:05
Sodium 135 mmol/L (135-145) 01/06/25 06:05
Potassium 3.7 mmol/L (3.5-5.1) 01/06/25 06:05
Chloride 98 mmol/L (98-107) 01/06/25 06:05
Carbon Dioxide 28 mmol/L (22-30) 01/06/25 06:05
BUN 84 mg/dl (9-20) H 01/06/25 06:05
Creatinine 3.2 mg/dL (0.7-1.3) H 01/06/25 06:05
eGFR 18.27 01/06/25 06:05
Glucose 141 mg/dl (70-99) H 01/06/25 06:05
Calcium 8.4 mg/dl (8.4-10.2) 01/06/25 06:05
Albumin 3.0 g/dl (3.5-5.0) L 01/06/25 06:05
Physical Exam
-
Vital Signs:
Vital Signs
Temp Pulse Resp BP Pulse Ox
97 F 88 16 83/58 85
01/06/25 09:00 01/06/25 10:00 01/06/25 10:00 01/06/25 08:13 01/06/25 10:00
Cardiovascular:: Regular rate and rhythm
Lung Excursion:: Abnormal (decreased)
Abdomen:: Nontender and Soft
Bowel Sounds:: Normal
Extremity Edema:: None: Bilateral:
Santos Catheter: Yes
--- NOTE | 2025-01-06 12:00 | PTCARENOTE ---
emotional support provided to family. all at bedside at this time. prepared to withdraw care. MD aware and will place orders for ativan/morphine etc and will titrate supporting medications off. care cart ordered from kitchen.
--- NOTE | 2025-01-06 13:52 | CHAP ---
Emotional and spiritual support offered to family gathered at bedside. Family declined at this time. Will follow as able.
--- NOTE | 2025-01-06 15:50 | W.PN.CD ---
Addendum entered and electronically signed by Norm Ross MD 01/07/25 09:56:
Clarification of diagnoses as requested by CDI:
The patent's primary diagnosis for admission was cardiogenic shock secondary to bioprosthetic valve failure due to severe bioprosthetic aortic valve stenosis
Original Note:
Today's Communication / Plan
-
[facility]
Impression / Plan
-
84 yo male with [facility] 23mm bio AVR in 02/2013, HFrEF 40%, HTN, CKD, and DM, who was admitted to [facility] 12/26/24 for syncope at home, cardiogenic shock and acute HFrEF (EF dropped from 40% to 25%) now transferred to for potential TAVR. RHC on
01/02/25 was cold and wet, started on dobutamine and lasix drip. Then developed mixed cardiogenic/septic shock from possible UTI, started on phenylephrine 3/2 AM, now transitioned to norepi.
Subjective:
Worsening overnight with increased pressor requirements and worsening mental status.
Last hemodynamics CO 4.3, CI 2.0, CVP 7, PA 52/30, BP 83/58 (68), HR 85, SVR 903. 99% on 4L O2. Current infusions: Dobutamine 5, Norepi 14, Lasix 20. UOP ~150/hr over past 24 hours
Goals of care - extensive discussion with gathered family about patient's trajectory and poor prognosis for recovery with ongoing progressive shock and end organ failure. Family is understanding that patient does not have a meaningful chance for
recovery and is interested in transitioning to comfort care. I anticipate that the patient will pass in hours to days.
CCT: 35 minutes, cardiogenic shock, extensive family goals of care discussion
Physical Exam
Vital Signs/Labs
Vital Signs
Temp Pulse Resp BP Pulse Ox
35.9 C L 90 17 83/58 100
01/06/25 15:00 01/06/25 15:00 01/06/25 15:00 01/06/25 08:13 01/06/25 15:00
01/05/25 01/06/25 01/07/25
06:59 06:59 06:59
Actual Weight 94 kg 94 kg
01/06/25 06:05
01/06/25 06:05
PT 22.2 Sec (11.4-14.6) H 01/06/25 06:05
INR 1.93 01/06/25 06:05
APTT 41.9 Sec (23.4-35.0) H 01/06/25 06:05
Magnesium 2.3 mg/dl (1.6-2.3) 01/05/25 21:01
Physical Exam
Constitutional: No acute distress
Cardiovascular: Rhythm & rate is regular
Neuro/Psych: Other (somnolent)
Data Reviewed
-
Date of Service: January 06, 2025
Medical Decision Making: Reviewed Test Results
Labs: Labs Reviewed by me
Critical Care Time (in minutes): 35
--- NOTE | 2025-01-06 15:55 | PTCARENOTE ---
weaning gtts off. patients family at bedside in agreement to withdraw care. providing emotional support to family.
[2025-01-06] MEDS: MORPHINE SULFATE 2 MG IV ×2 (16:11→17:28)
[2025-01-06] MEDS: NSS (PRESERVATIVE FREE) 10 ML IV (16:13)
--- NOTE | 2025-01-06 16:21 | PTCARENOTE ---
Ativan given for sedation and withdrawl of care. morphine given for dyspnea
--- NOTE | 2025-01-06 16:31 | W.PN.UPDATE ---
Update Note
Progress Note Update
discussed poor prognosis with family. Comfort measures discussed, family agreeable. prn Morphine and Prn Ativan ordered. d/w Cards/Renal and RN.
[2025-01-06] MEDS: MORPHINE 100 IV (18:33)
--- NOTE | 2025-01-06 19:26 | PTCARENOTE ---
assumed care of patient @ 1900. Recieved pt on comfort care in sustained VT HR 120s. BPs 30s/20s on A line. pt unresponsive to verbal and tactile stimuli. pt appears very comfortable without distress, received on 3 of morphine through R IJ cordis.
Family at bedside, emotional support provided.
[2025-01-07] MEDS: MORPHINE SULFATE 2 MG IV ×3 (01:45→03:02)
--- NOTE | 2025-01-07 02:29 | PTCARENOTE ---
morphine PRN given for moderate dyspnea
[2025-01-07] MEDS: ROBINUL 0.2 MG IV (03:55)
--- NOTE | 2025-01-07 04:24 | PTCARENOTE ---
Addendum entered by Dennis Lind RN 01/07/25 07:09:
[facility] called. post mortem care provided. Dung, Shekhar salazar, fidel ANDRADE removed. Cordis kept. [place] [facility] [place] emotional support provided for son.
Original Note:
pt went asystole, CTPA pronounced time of at 0420.
--- NOTE | 2025-01-07 04:26 | W.PN.DEATH ---
Pronouncement of
-
Called to see patient to pronounce.
No spontaneous heart tones or respirations noted.
Patient not responsive to verbal stimuli.
Patient is pronounced .
Time of : 04:20
Date of : 01/07/25
Cause of : Cardiogenic shock
Family Notified: Yes (Pt was a DNR, comfort care, son Srinivas Shepherd slept in pt's room overnight )
== END 2025-01-07 04:20 | disposition expired | DRG 286 ==
LOC: CVICU 09:30
PROVIDERS: Internal Medicine; Nurse Practitioner Acute Care; Student in an Organized Health Care Education/Training Program; ADMITTING PHYSICIAN Internal Medicine Cardiovascular Disease; ATTENDING PHYSICIAN Internal Medicine; CONSULT PHYSICIAN Internal Medicine Hematology & Oncology; CONSULT PHYSICIAN Specialist; CONSULT PHYSICIAN Student in an Organized Health Care Education/Training Program; FAMILY PHYSICIAN Family Medicine
PROC: 4A023N6 Measurement of Cardiac Sampling and Pressure, Right Heart, Percutaneous Approach (ICD-10-PCS; 2025-01-02)
PROC: 03HY32Z Insertion of Monitoring Device into Upper Artery, Percutaneous Approach (ICD-10-PCS; 2025-01-03)
DX: T82.858A Stenosis of other vascular prosthetic devices, implants and grafts, initial encounter (principal); A41.9 Sepsis, unspecified organism; G92.8 Other toxic encephalopathy; J96.01 Acute respiratory failure with hypoxia; R65.21 Severe sepsis with septic shock; D65 Disseminated intravascular coagulation [defibrination syndrome]; I13.0 Hypertensive heart and chronic kidney disease with heart failure and stage 1 through stage 4 chronic kidney disease, or unspecified chronic kidney disease; I50.22 Chronic systolic (congestive) heart failure; I42.9 Cardiomyopathy, unspecified; N39.0 Urinary tract infection, site not specified; I47.20 Ventricular tachycardia, unspecified; N17.9 Acute kidney failure, unspecified; E11.22 Type 2 diabetes mellitus with diabetic chronic kidney disease; Z95.3 Presence of xenogenic heart valve; I25.10 Atherosclerotic heart disease of native coronary artery without angina pectoris; F03.90 Unspecified dementia, unspecified severity, without behavioral disturbance, psychotic disturbance, mood disturbance, and anxiety; B95.2 Enterococcus as the cause of diseases classified elsewhere; E61.1 Iron deficiency; R45.1 Restlessness and agitation; Z51.5 Encounter for palliative care; Z66 Do not resuscitate; R57.0 Cardiogenic shock; I48.0 Paroxysmal atrial fibrillation; N18.32 Chronic kidney disease, stage 3b; I27.29 Other secondary pulmonary hypertension; D63.1 Anemia in chronic kidney disease; I35.0 Nonrheumatic aortic (valve) stenosis; Y83.2 Surgical operation with anastomosis, bypass or graft as the cause of abnormal reaction of the patient, or of later complication, without mention of misadventure at the time of the procedure; Z79.82 Long term (current) use of aspirin; Z79.899 Other long term (current) drug therapy
CPT/HCPCS: 71045; 76770; 76937; 80048; 80053; 80202; 81003; 81015; 82248; 82330; 82570; 82607; 82668; 82728; 82746; 82810; 82962; 82977; 83010; 83036; 83540; 83550; 83615; 83735; 84155; 84156; 84165; 84300; 85025; 85027; 85045; 85384; 85610; 85730; 86850; 86900; 86901; 86920; 87077; 87086; 87186; 93005; 93306; 93451; 94640; J1205; P9016